=== PATIENT | female | born 1945 | race Caucasian/White ===

== ENCOUNTER 2023-11-09 11:34 | Outpatient (AMB) | payer OTHER, SELFPAY ==
[2023-11-09 12:04] VITALS: BP 122/58; PULSE 84; O2SAT 99
--- NOTE | 2023-11-09 12:04 | HO.NEPHOV ---
HPI HPI Comments History of Present Illness Details I would the privilege of seeing Lisa on a backdrop of hypertension and history of microalbuminuria. She is longstanding diabetic. Her blood sugar control has been suboptimal. She is on losartan 100 mg daily which she is tolerating well. Her blood pressure has been at goal. She has history of atrial fibrillation and has been taking diltiazem. She has edema from her calcium channel fide and takes diuretics. She is on anticoagulation. She has history of diastolic heart failure. She has longstanding back issues and has seen pain management. She currently has been having left hip issues but denies taking nonsteroidal anti-inflammatories on a regular basis. She has history of incontinence and takes mirabegron. She is concerned about taking diuretics while having issues of incontinence. She follows up with the [facility]. She denies chest pain, shortness of breath, paroxysmal nocturnal dyspnea, orthopnea, hematuria or orthostatic symptoms. Her renal functions are stable. [facility] Medical History (Updated 11/09/23 @ 20:52 by Kirk Lai MD) Urine incontinence Renal insufficiency Radiculopathy Plantar fasciitis Osteomyelitis of thoracic spine Osteoarthritis CRISTOFER (obstructive sleep apnea) Meniere disorder Lumbar degenerative disc disease Hypertension Edema Diastolic CHF, chronic Diabetic neuropathy Type 2 diabetes mellitus with microalbuminuria Diabetes mellitus Chronic anticoagulation Atrial fibrillation CKD (chronic kidney disease) stage 3, GFR 30-59 ml/min Surgical History History of cataract surgery History of cholecystectomy History of thyroidectomy History of spinal fusion H/O arthroscopy of right knee H/O laminectomy History of bladder suspension procedure History of carpal tunnel release H/O bilateral salpingo-oophorectomy S/P laparoscopic hysterectomy History of prolapse of bladder Vital Signs 11/09/23 12:04 Height 5 ft 6 in BP 122/58 L Blood Pressure Location Lt brachial Position Sitting Pulse 84 Pulse Source Pulse Oximeter Pulse Oximetry (%) 99 Oxygen Delivery Method Room Air Physical Exam Vital Signs: Last Vital Signs Pulse 84 11/09/23 12:04 BP 122/58 L 11/09/23 12:04 Pulse Ox 99 11/09/23 12:04 Oxygen Delivery Method Room Air 11/09/23 12:04 Const General: comfortable and no acute distress Orientation/consciousness: patient oriented x3 HEENT Head: Yes normocephalic Mouth: Normal oral and palatal mucosa present Eyes EOM: EOMs intact bilaterally Neck Neck: Yes supple Resp Auscultation: clear to auscultation bilaterally Cardio Jugular venous distension: no JVD Rate: regular rate GI Palpation (GI): Soft to palpation Auscultation: normal bowel sounds Skin General skin exam: no rashes or lesions noted Neuro General: patient oriented x3 and moves all extremities Assessment & Plan Assessment & Plan (1) Hypertension: Code(s): I10 - Essential (primary) hypertension Qualifiers: Hypertension type: primary hypertension Qualified Code(s): I10 - Essential (primary) hypertension (2) Diabetes mellitus with proteinuria: Code(s): E11.29 - Type 2 diabetes mellitus with other diabetic kidney complication; R80.9 - Proteinuria, unspecified Plan Lisa has longstanding diabetes mellitus with hypertension and history of microalbuminuria. She is tolerating ARB and her blood pressure has been at goal. Her blood sugar control is not optimal despite being on insulin. She will benefit from Jardiance or Farxiga. She needs to lose weight. She should cut back sodium in the diet. She was wondering whether she can switch from diltiazem as it is contributing to her edema. 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 Her renal functions are stable. She is on statins. I did not make any medication changes today. All these issues have been discussed in detail. I answered all her and her 's questions. Follow-up lab work ordered and follow-up appointment given. Orders: Orders Electrolytes Today I10 - Essential (primary) hypertension Protein Creatinine Ratio, Ur Today I10 - Essential (primary) hypertension Creatinine Today I10 - Essential (primary) hypertension Blood Urea Nitrogen Today I10 - Essential (primary) hypertension Hemoglobin A1c Today I10 - Essential (primary) hypertension Coding Level of Care Code New Pt Level 4 (35331) Diagnoses Primary hypertension I10 Hypertension type: primary hypertension Diabetes mellitus with proteinuria E11.29; R80.9 Results Reviewed Nephrology Results: No Data to Display
== END 2023-11-09 13:06 | disposition home or self-care (01) ==
PROVIDERS: PCP Internal Medicine; Visit Provider Internal Medicine Nephrology
DX: I10 Essential (primary) hypertension (principal); E11.29 Type 2 diabetes mellitus with other diabetic kidney complication; R80.9 Proteinuria, unspecified
CPT/HCPCS: 99204

== ENCOUNTER → 2023-11-09 11:34 | Outpatient (BNVA) | payer OTHER, SELFPAY | PROVIDERS: PCP Internal Medicine; Visit Provider Internal Medicine Nephrology ==

== ENCOUNTER 2024-06-22 11:50 | Outpatient (AMB) | payer OTHER, SELFPAY ==
--- NOTE | 2024-06-22 12:19 | HO.NEPHOV_ITS ---
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 Her blood sugar control has been suboptimal. She is on losartan 100 mg daily which she is tolerating well. Her blood pressure has been at goal. She has history of atrial fibrillation and has been taking diltiazem. She has edema from her calcium channel fide and takes diuretics. She is on anticoagulation. She has history of diastolic heart failure. She has longstanding back issues and has seen pain management. She has history of incontinence and takes mirabegron. She follows up with the [facility]. She denies chest pain, shortness of breath, paroxysmal nocturnal dyspnea, orthopnea, hematuria or orthostatic symptoms. Her renal functions are stable [facility] Medical History (Updated 06/26/24 @ 22:07 by Kirk Lai MD) Urine incontinence Renal insufficiency Radiculopathy Plantar fasciitis Osteomyelitis of thoracic spine Osteoarthritis CRISTOFER (obstructive sleep apnea) Meniere disorder Lumbar degenerative disc disease Hypertension Edema Diastolic CHF, chronic Diabetic neuropathy Type 2 diabetes mellitus with microalbuminuria Diabetes mellitus Chronic anticoagulation Atrial fibrillation CKD (chronic kidney disease) stage 3, GFR 30-59 ml/min Surgical History History of cataract surgery History of cholecystectomy History of thyroidectomy History of spinal fusion H/O arthroscopy of right knee H/O laminectomy History of bladder suspension procedure History of carpal tunnel release H/O bilateral salpingo-oophorectomy S/P laparoscopic hysterectomy History of prolapse of bladder Review of Systems Const All systems reviewed & are unremarkable except as noted in HPI and below Physical Exam Vital Signs: Last Vital Signs BP 122/54 L 06/22/24 12:20 Const General: comfortable and no acute distress Orientation/consciousness: patient oriented x3 HEENT Head: Yes normocephalic Mouth: Normal oral and palatal mucosa present Eyes EOM: EOMs intact bilaterally Neck Neck: Yes supple Resp Auscultation: clear to auscultation bilaterally Cardio Jugular venous distension: no JVD Rate: regular rate GI Palpation (GI): Soft to palpation Auscultation: normal bowel sounds General: Yes no CVA tenderness Back/Spine/Pelvis Back: no CVA tenderness Skin General skin exam: no rashes or lesions noted Neuro General: patient oriented x3 and moves all extremities Extrem General: Yes no pedal edema Results Reviewed Nephrology Results: No Data to Display Assessment & Plan Assessment & Plan (1) CKD (chronic kidney disease) stage 3, GFR 30-59 ml/min: Code(s): N18.30 - Chronic kidney disease, stage 3 unspecified Category: Medical Qualifiers: Chronic kidney disease stage 3 subtype: stage 3a (GFR 45-59) Qualified Code(s): N18.31 - Chronic kidney disease, stage 3a (2) Hypertension: Code(s): I10 - Essential (primary) hypertension Category: Medical Qualifiers: Hypertension type: primary hypertension Qualified Code(s): I10 - Essential (primary) hypertension (3) Diabetes mellitus with proteinuria: Code(s): E11.29 - Type 2 diabetes mellitus with other diabetic kidney complication; R80.9 - Proteinuria, unspecified Category: Medical Plan Lisa has longstanding diabetes mellitus with hypertension and history of proteinuria. She is tolerating ARB and her blood pressure has been at goal. Her blood sugar control is not optimal despite being on insulin. She will benefit from Jardiance or Farxiga. She needs to lose weight. She should cut back sodium in the diet. Her renal functions had been stable. She is on st atins. I did not make any medication changes today. All these issues have been discussed in detail. I answered all her and her 's questions. Follow-up lab work ordered Orders: Orders Protein Creatinine Ratio, Ur 06/22/24 E11.29 - Type 2 diabetes mellitus with other diabetic kidney complication, I10 - Essential (primary) hypertension, N18.30 - Chronic kidney disease, stage 3 unspecified, R80.9 - Proteinuria, unspecified Creatinine 06/22/24 E11.29 - Type 2 diabetes mellitus with other diabetic kidney complication, I10 - Essential (primary) hypertension, N18.30 - Chronic kidney disease, stage 3 unspecified, R80.9 - Proteinuria, unspecified Blood Urea Nitrogen 06/22/24 E11.29 - Type 2 diabetes mellitus with other diabetic kidney complication, I10 - Essential (primary) hypertension, N18.30 - Chronic kidney disease, stage 3 unspecified, R80.9 - Proteinuria, unspecified Electrolytes 06/22/24 E11.29 - Type 2 diabetes mellitus with other diabetic kidney complication, I10 - Essential (primary) hypertension, N18.30 - Chronic kidney disease, stage 3 unspecified, R80.9 - Proteinuria, unspecified Coding Level of Care Code Est Pt Level 4 (58916) Diagnoses Stage 3a chronic kidney disease N18.31 Chronic kidney disease stage 3 subtype: stage 3a (GFR 45-59) Primary hypertension I10 Hypertension type: primary hypertension Diabetes mellitus with proteinuria E11.29; R80.9
[2024-06-22 12:20] VITALS: BP 122/54
== END 2024-06-22 12:59 | disposition home or self-care (01) ==
LOC: HO.HKAS 11:50
PROVIDERS: PCP Internal Medicine; Visit Provider Internal Medicine Nephrology
DX: N18.31 Chronic kidney disease, stage 3a (principal); I10 Essential (primary) hypertension; E11.29 Type 2 diabetes mellitus with other diabetic kidney complication; R80.9 Proteinuria, unspecified
CPT/HCPCS: 99214

== ENCOUNTER → 2024-06-22 11:50 | Outpatient (BNVA) | payer OTHER, SELFPAY | PROVIDERS: PCP Internal Medicine; Visit Provider Internal Medicine Nephrology ==

== ENCOUNTER 2024-12-21 13:02 | Outpatient (AMB) | payer OTHER, SELFPAY ==
--- NOTE | 2024-12-21 13:23 | HO.NEPHOV ---
Vital Signs 12/21/24 13:54 Height 5 ft 6 in Weight 211 lb 4 oz BMI 34.1 BP 120/60 Blood Pressure Location Rt brachial Position Sitting Pulse 70 Pulse Source Pulse Oximeter Pulse Oximetry (%) 99 Oxygen Delivery Method Room Air Intake Visit Reasons: 6mon follow up-[facility] Senior Net Architect Required: No Accompanied by: Spouse Allergies morphine Allergy (Verified 12/21/24 13:54) Unknown Penicillins Allergy (Verified 12/21/24 13:54) Rash vancomycin Allergy (Verified 12/21/24 13:54) Rash codeine Adverse Reaction (Verified 12/21/24 13:54) Abdominal Pain HPI Comments Details: Lisa was seen in follow up who has H/O DM, CKD 3, hypertension with history of proteinuria. Her blood sugar control has been suboptimal. She is on losartan 100 mg daily which she is tolerating well. Her blood pressure has been at goal. She has history of atrial fibrillation and has been taking diltiazem. She has edema from her calcium channel fide and takes diuretics. She is on anticoagulation. She has history of diastolic heart failure. She has longstanding back issues and has seen pain management. She follows up with the [facility]. She denies chest pain, shortness of breath, paroxysmal nocturnal dyspnea, orthopnea, hematuria or orthostatic symptoms. Her renal functions had been stable [facility] Medical History (Updated 06/26/24 @ 22:07 by Kirk Lai MD) Urine incontinence Renal insufficiency Radiculopathy Plantar fasciitis Osteomyelitis of thoracic spine Osteoarthritis CRISTOFER (obstructive sleep apnea) Meniere disorder Lumbar degenerative disc disease Hypertension Edema Diastolic CHF, chronic Diabetic neuropathy Type 2 diabetes mellitus with microalbuminuria Diabetes mellitus Chronic anticoagulation Atrial fibrillation CKD (chronic kidney disease) stage 3, GFR 30-59 ml/min Surgical History History of cataract surgery History of cholecystectomy History of thyroidectomy History of spinal fusion H/O arthroscopy of right knee H/O laminectomy History of bladder suspension procedure History of carpal tunnel release H/O bilateral salpingo-oophorectomy S/P laparoscopic hysterectomy History of prolapse of bladder Review of Systems Const All systems reviewed & are unremarkable except as noted in HPI and below Physical Exam Vital Signs: Last Vital Signs Pulse 70 12/21/24 13:54 BP 120/60 12/21/24 13:54 Pulse Ox 99 12/21/24 13:54 Oxygen Delivery Method Room Air 12/21/24 13:54 BMI result Body Mass Index 34.1 Const General: comfortable and no acute distress Orientation/consciousness: patient oriented x3 HEENT Head: Yes normocephalic Mouth: Normal oral and palatal mucosa present Eyes EOM: EOMs intact bilaterally Neck Neck: Yes supple Resp Auscultation: clear to auscultation bilaterally Cardio Jugular venous distension: no JVD Rate: regular rate GI Palpation (GI): Soft to palpation Auscultation: normal bowel sounds General: Yes no CVA tenderness Back/Spine/Pelvis Back: no CVA tenderness Skin General skin exam: no rashes or lesions noted Neuro General: patient oriented x3 and moves all extremities Extrem General: Yes no pedal edema Results Reviewed Nephrology Results: No Data to Display Assessment & Plan Assessment & Plan (1) Diabetes mellitus with proteinuria: Code(s): E11.29 - Type 2 diabetes mellitus with other diabetic kidney complication; R80.9 - Proteinuria, unspecified Category: Medical (2) CKD (chronic kidney disease) stage 3, GFR 30-59 ml/min: Code(s): N18.30 - Chronic kidney disease, stage 3 unspecified Category: Medical Qualifiers: Chronic kidney disease stage 3 subtype: stage 3a (GFR 45-59) Qualified Code(s): N18.31 - Chronic kidney disease, stage 3a (3) Hypertension: Code(s): I10 - Essential (primary) hypertension Category: Medical Qualifiers: Hypertension type: primary hypertension Qualified Code(s): I10 - Essential (primary) hypertension Plan Lisa has longstanding diabetes mellitus with hypertension and history of proteinuria. She is tolerating ARB and her blood pressure has been at goal. Her blood sugar control is not optimal despite being on insulin. She will benefit from Jardiance. She needs to lose weight. She should cut back sodium in the diet. Her renal functions had been stable. She is on statins. I did not make any medication changes today. All these issues have been discussed in detail. I answered all her and her 's questions. Follow-up lab work ordered Orders: Orders Protein Creatinine Ratio, Ur 8 Months E11.29 - Type 2 diabetes mellitus with other diabetic kidney complication, I10 - Essential (primary) hypertension, N18.31 - Chronic kidney disease, stage 3a, R80.9 - Proteinuria, unspecified Creatinine 8 Months E11.29 - Type 2 diabetes mellitus with other diabetic kidney complication, I10 - Essential (primary) hypertension, N18.31 - Chronic kidney disease, stage 3a, R80.9 - Proteinuria, unspecified Blood Urea Nitrogen 8 Months E11.29 - Type 2 diabetes mellitus with other diabetic kidney complication, I10 - Essential (primary) hypertension, N18.31 - Chronic kidney disease, stage 3a, R80.9 - Proteinuria, unspecified Electrolytes 8 Months E11.29 - Type 2 diabetes mellitus with other diabetic kidney complication, I10 - Essential (primary) hypertension, N18.31 - Chronic kidney disease, stage 3a, R80.9 - Proteinuria, unspecified Coding Level of Care Code Est Pt Level 4 (49379) Diagnoses Diabetes mellitus with proteinuria E11.29; R80.9 Stage 3a chronic kidney disease N18.31 Chronic kidney disease stage 3 subtype: stage 3a (GFR 45-59) Primary hypertension I10 Hypertension type: primary hypertension
[2024-12-21 13:54] VITALS: BP 120/60; PULSE 70; O2SAT 99; BMI 34.1
--- OUTSIDE RECORDS SUMMARY | 2024-12-21 15:29 | XMS_ITS | Data Portability ---
Author Organization [place] - [facility], [facility] Address [address] [place] [phone] Care Team Providers Care Promotion Writer Name Role Phone ARPAN TODD Primary Care Provider JENNIFER MARTINEZ OTHER Assessment Encounter Date Assessment Date Assessment LastModified by Organization Details LastModified Time 03/19/2021 03/19/2021 Time On Scene with Patient: 00:35:21 - Referred - Point of Care: Emergency Department [id number] Not available 03/19/2021 18:11:18 06/24/2022 06/24/2022 Overview/History : Patient is a 76 year old female with a PMH including A FIB (on xarelto), CHF, insulin dependent T2DM, 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 Pain exacerbated with ambulation/movem ent. No injuries. Has been taking tylenol for the pain all she can take for pain , some effect. Also using a heating pad. Denies any fevers/loss of sensation/weakne ss. Exam: Patient is awake and alert, answering questions appropriately. In no distress. Sitting in recliner with heating pad in place. LS CTA, RRR. Vitals stable. Able to stand for evaluation. Skin is warm dry and intact. No bony abnormality noted to L hip/no obvious shortening. Tenderness noted to palpation of soft tissue. No step offs/deformities present. + CMS to bilat LE. She was able to stand independently without assist. Vital Signs: 98.1, RR 18, 122/50, 100% RA HR 72. DDx considered, but not limited to: -- L hip pain; unknown cause of injury likely due to overuse. -- Hip fracture, unlikely based on physical exam. Patient able to stand/ no obvious shortening or deformity noted. Will order an XRAY to rule out any bony abnormality. Work up/Results: Physical exam Plan/Discussion: L hip pain; continue to use the heating pad 20 minutes on 20 minutes off as well as ice. Recommended she uses Lidocaine patches as well for the localized pain. Unable to administer any narcotics agents as [employer] is a narcotic free [employer]. Patient also can only take tylenol for pain .. she has a long history with pain management in past requiring previous epidurals. Encouraged she follows up with pain services as well as PCP. Patient and family present in agreement with plan. Phone number provided to [employer], instructed to call if she has not heard from them by tomorrow afternoon. Aware we will be in contact with any abnormal findings. ED precautions provided; seek medical attention with worsening pain/change or loss in sensation/fevers / increased weakness. Proper Personal Protective Equipment (PPE), including gloves, eye protection and masks were donned and doffed appropriately and all equipment cleaned using approved technique with germicidal disposable wipes prior to and after care of this patient according to [facility] infection prevention protocols. [email or web address] Not available 06/24/2022 20:10:37 Plan of Treatment Reminders Order Date Submit Date Provider Last Modified By Organization Details Last Modified Time Details Appointments None recorded. Lab None recorded. Referral None recorded. Procedures None recorded. Surgeries None recorded. Imaging unlisted imaging order - hip uni W or w/o pelvis 2-3 V-lt 2021 [facility]22 [facility] [address] [place] [address], [place], [address], 14:12:26 Medication Orders None recorded. Patient TargetsNo targets recorded. Patient InstructionsNo instructions recorded. Reason for Referral None Reported. Results Created Date Observation Date Name Description Value Unit Range Abnormal Flag Note LastModifiedBy Organization Detail LastModifiedTime 06/25/20 22 06/25/2022 hip uni W or w/o pelvi s 2-3 V HIP UNI W OR W/O PELVIS 2-3 V, LEFT FINDIN GS: No acute fractu re or disloc ation. The osseou s struct ures appear intact . Joint spaces are narrow ed. Soft tissue s are unrema rkable . CONCLU SB: No acute osseou s abnorm ality. Recomm end repeat or CT in 1 week or sooner if sympto ms have not resolv ed, contin ued or new ambula tory diffic ulty or contin ued clinic al concer n. ELECTR ONICAL LY SIGNED BY LIZZY MCNEAL M.D. 2:04:1 7 PM EDT. HIP UNI W OR W/O PELVIS 2-3 V, LEFT Result s: No acute fractu re or disloc ation. The osseou s struct ures appear intact . Joint spaces are narrow ed. Soft tissue s are unrema rkable . Conclu sb: No acute osseou s abnorm ality. Recomm end repeat or CT in 1 week or sooner if sympto ms have not resolv ed, contin ued or new ambula tory diffic ulty or contin ued clinic al concer n. Electr onical ly signed by LIZZY MCNEAL M.D. 2:04:1 7 PM EDT. [facility] [address] [facility] [address] [address], [address], 06/25/2022 17:00:39 Result Notes None recorded. Procedures Surgical History Date Name Laterality Status Provider Name and Address Organization Details Recorded Time 06/24/20 22 Medication Review completed Krista Navarro NP [address], [place], [address], [place] [facility] 06/24/2022 19:56:31 Imaging Results Imaging Date Name Status LastModified by Organiz ation Details LastModified Time 06/25/2022 hip uni W or w/o pelvis 2-3 V completed [facility] [address] [facility] [address] [address], [place], [address], 06/25/2022 17:00:39 Procedure Notes None recorded. Medical Equipment None Reported. Allergies Allergen ID Allergen Name Allergen Category Reaction Reaction Severity Criticality Documentation Date Start Date Code Code System Note Provider Name and Address Organization Details Recorded Time [id number] codeine medicatio n Not available Not available Not available 03/19/2021 2670 [facility]Norm Georgie Martin NP [address], [facility] [place], [address], [place] [facility] 1 17:26:21 [id number] morphine medicatio n Not available Not available Not available 03/19/2021 7052 RxNorm Georgieadriana Martin, [employer] [address], [facility] [place], [address], [place] [facility] 1 17:26:29 217143 vancomyci n medicatio n Not available Not available Not available 03/19/2021 81855 RxNorm Georgie Martin, [employer] [address], [facility] [place], [address], [place] [facility] 1 17:26:37 [id number] Product containin g penicilli n (product) medicatio n Not available Not available Not available 03/19/2021 30487 8001 SNOMED Georgie Martin, [employer] [address], [facility] [place], [address], [place] [facility] 1 17:26:44 Medications Name Sig Start Date Stop Date Status Note LastModified by Organization Details LastModified Time pravastatin 40 mg tablet TAKE 1 TABLET BY MOUTH DAILY AT BEDTIME active Not Available Not Available No t Available miconazole nitrate 2 % topical cream APPLY TOPICALLY TO THE AFFECTED AREA TWICE DAILY FOR 14 DAYS 06/24 completed Not Available Not Available Not Available diltiazem CD 240 mg capsule,ext ended release 24 hr TAKE 1 CAPSULE BY MOUTH DAILY active Not Available Not Available No t Available gabapentin 300 mg capsule TAKE 1 CAPSULE BY MOUTH AT BEDTIME active Not Available Not Available No t Available omeprazole 20 mg capsule,del ayed release TAKE 1 CAPSULE BY MOUTH DAILY active Not Available Not Available No t Available furosemide 20 mg tablet TAKE 1 TABLET BY MOUTH DAILY active Not Available Not Available No t Available norethindro ne acetate 5 mg tablet TAKE 1 TABLET BY MOUTH EVERY DAY active Not Available Not Available No t Available losartan 100 mg tablet TAKE 1 TABLET BY MOUTH DAILY active Not Available Not Available No t Available doxycycline hyclate 100 mg tablet TAKE 1 TABLET BY MOUTH TWICE DAILY FOR 10 DAYS 06/24 completed Not Available Not Available Not Available Novofine Autocover 30 gauge x 1/3 needle USE THREE TIMES DAILY active Not Available Not Available No t Available Zyrtec active Not Available Not Availa ble Not Available Lantus Solostar U-100 Insulin 100 unit/mL (3 mL) subcutaneou s pen ADMINISTE R 48 UNITS UNDER THE SKIN AT NIGHT active Not Available Not Available No t Available Humalog KwikPen (U-100) Insulin 100 unit/mL subcutaneou s INJECT 14-23 UNITS THREE TIMES DAILY WITH MEALS BASED ON SLIDING SCALE. MAX DAILY DOSE OF 90 UNITS active Not Available Not Available No t Available Xarelto 15 mg tablet TK 1 T PO QD 03/19 completed Not Available Not Available Not Available Xarelto 20 mg tablet TAKE 1 TABLET BY MOUTH DAILY active Not Available Not Available No t Available FreeStyle Toribio 14 Day Sensor kit active Not Available Not Available Not Available Vitals Date Recorded Oxygen saturation Oxygen saturation in Arterial blood by Pulse oximetry Body temperature Heart rate Respiratory rate Systolic blood pressure Diastolic blood pressure Provider Name and Address Organization Details Last Updated DateTime 1 98 % 98 % 99 [degF] 148 /min 22 /min 140 mm[Hg] 70 mm[Hg] Not Available [facility] 1 17:46:43 Date Recorded Body temperature Heart rate Respiratory rate Oxygen saturation Oxygen saturation in Arterial blood by Pulse oximetry Systolic blood pressure Diastolic blood pressure Provider Name and Address Organization Details Last Updated DateTime 2 98.1 [degF] 72 /min 18 /min 100 % 100 % 122 mm[Hg] 50 mm[Hg] Krista Navarro NP [address] [place], [address], [place] [facility] 2 19:21:29 Social History Question Answer Notes LastModified by Organizat ion Details LastModified Time Tobacco Smoking Status Never Smoker Georgie Martin NP [address], [place], [address], [place] [facility] 03/19/2021 17:39:55 Do You Have An Advance Directive? No Information not available 03/19/2021 What Is Your Level Of Alcohol Consumption? None Information not available 03/19/2021 What Is Your Code Status? Full Code Information not available 03/19/2021 Within The Past 12 Months, Has It Happened That The Food You Bought Just Didn't Last And You Didn't Have Money To Get More. No Information not available 03/19/2021 Within The Past 12 Months, Have You Worried That Your Food Would Run Out Before You Got Money To Buy More. No Information not available 03/19/2021 Fall Risk: Do You Feel Unsteady When Standing Or Walking? No Information not available 03/19/2021 We Know That How And When People Interact With Friends And Family Can Be Very Different From Person To Person. How Often Do You Have The Opportunity To See Or Talk To People That You Care About And Feel Close To? (Ex: Talking To Friends On The Phone Or Visiting Friends Or Family Or Going To [employer] Or Club Meetings) 1 Or 2 Times Per Week Information not available 03/19/2021 Excessive Alcohol Or Drug Use No Information not available 03/19/2021 Does This Patient Have A PCP? Yes Information not available 03/19/2021 We Know From Many Of Our Patients That Covering All Of Their Costs Can Be Difficult At Times. This Can Cause Stress And Impact Health. In The Past Year, Have You Been Unable To Get Any Of The Following When It Was Really Needed? No Information not available 03/19/2021 What Is Your Housing Situation Today? I Have Housing Information not available 03/19/2021 Would You Like Help Connecting To Resources? None Information not available 03/19/2021 Do You Use Any Illicit Or Recreational Drugs? No Information not available 03/19/2021 Do You Or Have You Ever Used Any Other Forms Of Tobacco Or Nicotine? No Information not available 03/19/2021 Sex: Unknown Functional Status None recorded. Mental Status None recorded. Family History Relationship Description Onset Age of this Age Resolved Age Notes LastModified by Organization Details LastModified Time Father Heart disease Not available 2020 17:40:59 Father Diabetes mellitus Not available 2020 17:41:07 Mother Malignant tumor of breast Not available 2020 17:41:35 Medical History Condition Response Diabetes Y Coronary Artery Disease Y Cancer N Stroke N COPD N Depression Y Asthma N High Cholesterol Y Pulmonary Embolism N Hypertension Y Kidney Disease Y Gynecological HistoryNo gynecological history recorded. Obstetrics History GPAL:G 0 P 0 0 0 0 Past Encounters Encounter ID Performer Location Encounter Start Date Encounter Closed Date Diagnosis/Indication Diagnosis SNOMED-CT Code Diagnosis ICD10 Code Diagnosis Note [id number] Georgie Martin NP [facility] [address] [place] [address] 03/19/2021 17:22:54 03/19/2021 18:25:34 Dyspnea on exertion 70235974 R06.09 Overview/H istory: Patient is an alert 75 year old female who presents with chief complaint of flu symptoms x 12 days. She did visit the ED several days ago, but declined assessment due to long wait times. Patient did go to an urgent care center 5 days ago and a rapid strep resulted negative. She did have her Covid vaccinatio ns and completed the series this past November 2020. Patient PCP requests assessment for pneumonia and also Covid testing this visit. Exam: Febrile 99.0. HR tachycardi c, irregularl y irregular 148. No rub, murmur appreciate d. Dry mucous membranes, + submandibu lar lymphadeno hayley noted. Tenderness when palpating over frontal sinuses, erythema to oropharynx , airway is patent. LS diminished throughout , clear with exception of left lower lung field which is + crackles. RR 22 at rest, speaking in full sentences. Walking short distance to bedroom, patient SOB, speaking in short sentences , WOB NOTED. Abdomen SNT, + BS x 4 quadrants. No CVA tenderness , no suprapubic tenderness . DDx considered , but not limited to:Pneumon ia likely, febrile, + cracklesPE considered , no sudden onsetURI considered , febrile, productive coughAFIB + Work up/Results :Exam Plan/Discu ssion: Patient tachycardi c 148, dyspnea with exertion, crackles left lower lung dejesus, patient visit escalated to [facility] ED. Doug young contacted for transport. Report provided to [facility] single needle tufting machine operator. Proper Personal Protective Equipment (PPE), including {{gloves, eye protection , masks, and gowns, shoe covers rnadi ves, eye protection and masks* randi ves, eye protection gloves, eye protection , N95 mask, gown, and shoe covers abigail gical mask with face-shiel d, gloves, gown and shoe covers abigail gical mask with face-shiel d, gloves}} were donned and doffed rosalinda balderas and all equipment cleaned using approved technique with germicidal disposable wipes prior to and after care of this patient according to [facility]'s infection prevention protocols. In order to obtain further informatio n and compare any laboratory results/va lues, I have accessed {{old patient records* p atient records on the [facility] r eviewed records with the PCP}}. This informatio n was pertinent in my medical decision making today. Fever [id number] R50.9 Atrial fibrillation 4943 6004 I48.91 Tachycardia 6697654 R00. 0 Respiratory crackles 484 86614 R09.89 [id number] Krista Navarro NP [facility] [address] [place] [address] 06/24/2022 19:14:50 07/02/2022 07:32:59 Pain of left hip joint [id number] 61610 M25.552 Health Concerns Section Related Observation LastModified by Organization Detai ls LastModified Time None Recorded Concern Status LastModified by Organization Details LastModified Time None Recorded Advance Directives Directive N: Payers Encounter Date Sequence Insurance Name Policy Number Policy Diaz Covered Member ID Diaz Member ID Guarantor Name 03/19/2021 1 [employer] - MEDICARE ADVANTAGE PLAN (MEDICARE REPLACEMENT HMO) [id number] 01 Lisa Ruest [id number] Lisa Ruest 06/24/2022 2 [facility] - PLAN 1 (MEDICARE SUPPLEMENT) [id number] 01 Lisa Ruest [id number] Lisa Ruest 06/24/2022 1 [employer] - MEDICARE ADVANTAGE PLAN (MEDICARE REPLACEMENT HMO) Lisa Ruest [id number] Lisa Ruest Notes Date Note Type Note Provider Name and Address Organization Details Recorded Time 03/19/2021 text/html Patient is a 75 year old female who is new to and new to this provider. Patient chief complaint is flu symptoms x 12 days for which she went to the ED this past Wednesday where there was a 20 hour wait; patient declined wait and went to an urgent care where a throat strep swab resulted negative. Symptoms include persistent dry cough, some congestion,' chest wall discomfort from cough, intermittent diarrhea which patient feels is from OTC remedies. Alleviating factors include sugar free cough syrup, cough drops and saline nasal spray. Patient medical history significant for AFIB, hyperlipidemia, renal insufficiency, diabetes. Patient PCP requesting Covid testing although she did complete Covid vaccines x 2 this past November. Patient did have pneumonia vaccine and flu vaccine. 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 Pain exacerbated with ambulation/movemen t. No injuries. Has been taking tylenol for the pain all she can take for pain , some effect. Also using a heating pad. Denies any fevers/loss of sensation/weakness . Krista Navarro NP [address], [place], [address], [place] [facility] 06/24/2022 20:10:50 OBGyn Episode No OBEpisode recorded.
--- OUTSIDE RECORDS SUMMARY | 2024-12-21 15:29 | XMS_ITS | Continuity of Care Document ---
Author Organization [facility] Adult Address [address] [place] [address]- Care Team Providers Care Home Sales Service Professional Name Role Phone Carina ALCANTAAR, Zeus Peralta Primary Care Physici an [place] [facility] [place]24 [facility] [address] [place] [address]- Encounter Type: Triage Allergies, Adverse Reactions, Alerts Substance Criticality Severity Reaction Reaction Severity Status codeine severe stomach pain Active vancomycin Rash Active morphine passed out Active penicillins Rash Active Immunizations Given and Recorded Vaccine Date Status Refusal Reason nirsevimab (cvx 306) 07/03/24 Recorded SARS-CoV-2 mRNA (fyezlts-[id number]) vax 06/12/24 Recorded Influenza Virus Vaccine (oldterm) 05/22/24 Recorde d influenza virus vaccine, inactivated 07/05/23 Give n influenza virus vaccine, inactivated 1 07/05/23 Gi amy influenza virus vaccine, inactivated 2 06/29/22 Gi amy influenza virus vaccine, inactivated 05/20/21 Trung rded influenza virus vaccine, inactivated 06/25/20 Give n influenza virus vaccine, inactivated 3 06/19/19 Gi amy influenza virus vaccine, inactivated 4 06/14/18 Gi amy influenza virus vaccine, inactivated 05/10/17 Give n influenza virus vaccine, inactivated 06/12/16 Give n influenza virus vaccine, inactivated 09/11/15 Trung rded influenza virus vaccine, inactivated 05/27/14 Trung rded influenza virus vaccine, inactivated 05/21/13 Trung rded influenza virus vaccine, inactivated 09/05/12 Trung rded SARS-CoV-2(COVID-19)mRNA-LNP vac(act115) 07/05/23 Recorded SARS-CoV-2 (COVID-19) mRNA BNT-162b2 vac 06/19/21 Recorded SARS-CoV-2 (COVID-19) mRNA BNT-162b2 vac 11/27/20 Given SARS-CoV-2 (COVID-19) mRNA BNT-162b2 vac 11/06/20 Given tetanus/diphtheria/pertussis, acel(Tdap) 02/21/16 Given tetanus/diphtheria/pertussis, acel(Tdap) 08/23/11 Given pneumococcal 13-valent vaccine 03/02/15 Recorded pneumococcal 13-valent vaccine 08/23/14 Given pneumococcal 23-valent vaccine 08/23/13 Given pneumococcal 23-valent vaccine 12/23/01 Recorded Zoster Vaccine Live 08/23/13 Given 1Result Comment: [facility] [id number]; screening done 2Result Comment: [facility] [id number] 3Result Comment: [facility] [id number] 4Result Comment: [06/14/2018] [facility] [phone] Medications 1 rollator walker with seat 1 rollator walker with seat, See Instructions, # 1 each, Refills 0, Tot. Refills 0, Maintenance, 1 rollator walker with seat dx: M54.10 M51.36 weight 99kg length of need: lifetime, 01/20/24 7:59:00 AMEDT, Supply Start Date: 01/20/24 Status: Ordered Quantity: 1.0 Unit: each Repeat number: 1 Colace sodium 100 mg oral capsule 100 mg, 1, capsule, By Mouth, 2 times a day, PRN, # 60 capsule, Refills 0, Tot. Refills 0, Maintenance, for constipation, 04/30/23 4:24:00 PM EDT, Route to Pharmacy Electronically, [id number], Partial fill upon patient request if the prescription is for a schedule II opioid drug., 168, cm, 04/30/23 11:07:00 EDT, Height, 97.9, kg, 04/30/23 11:07:00 EDT, Dry Weight Start Date: 04/30/23 Status: Ordered Quantity: 60.0 Unit: capsule Repeat number: 1 Colace sodium 100 mg oral capsule 100 mg, 1, capsule, By Mouth, 2 times a day, PRN, # 20 capsule, Refills 0, Tot. Refills 0, Maintenance, for constipation, 07/26/23 10:22:00 AM EST, Route to Pharmacy Electronically, [facility] #[id number], Partial fill upon patient request if the prescription is for a schedule II opioid drug., 168, cm, 07/26/23 8:22:00 EST, Height, 94.8, kg, 07/22/23 13:11:00 EST, Dry Weight Start Date: 07/26/23 Status: Ordered Quantity: 20.0 Unit: capsule Repeat number: 1 diabetic shoes diabetic shoes, See Instructions, # 2 each, Refills 0, Tot. Refills 0, Maintenance, Diabetic shoes,05/30/24 1:21:00 PM EDT, Supply Start Date: 05/30/24 Status: Ordered Quantity: 2.0 Unit: each Repeat number: 1 DilTIAZem (Eqv-Cardizem CD) 240 mg/24 hours oral capsule, extended release 1 capsule, By Mouth, Daily, # 90 capsule, 3 Refills, Maintenance, 12/01/24 2:37:00 PM EDT, [facility] #[id number], 167.7, cm, 11/02/24 14:10:00 EDT, Height, 99.3, kg, 01/29/24 4:26:00 EDT, Dry Weight Start Date: 12/01/24 Status: Ordered Quantity: 90.0 Unit: capsule Repeat number: 4 FREESTYLE TORIBIO 14 DAY SENS Miscellaneous FREESTYLE TORIBIO 14 DAY SENS Miscellaneous, See Instructions, # 6 Unknown, 3 Refills, Maintenance, USE TO SCAN FOR BLOOD SUGAR AT LEAST 4 TIMES DAILY., 05/05/24 8:45:00 AM EDT, 167.7, cm, 04/19/24 9:07:00 EDT, Height, 99.3, kg, 01/29/24 4:26:00 EDT, Dry Weight Start Date: 05/05/24 Status: Ordered Quantity: 6.0 Unit: Unknown Repeat number: 1 Freestyle Toribio 14-day Sensors Freestyle Toribio 14-day Sensors, See Instructions, # 6 each, Refills 4, Tot. Refills 4, Maintenance,Use to scan for blood sugar at least 4 times daily. E11.65 90 day supply, 03/25/23 8:47:00 AM EDT, Compound, 168, cm, 03/18/23 14:07:00 EDT, Height, 98, kg, 02/19/23 13:11:00 EDT, Dry Weight Start Date: 03/25/23 Status: Ordered Quantity: 6.0 Unit: each Repeat number: 5 Freestyle lite glucometer Freestyle lite glucometer, See Instructions, # 1 pack/packet, Refills 0, Tot. Refills 0, Maintenance, freestyle lite glucometer, 07/07/22 10:15:00 AM EST, Supply, 165.5, cm, 07/07/22 9:45:00 EST, Height, 103, kg, 10/31/20 0:05:00 EST, Dry Weight Start Date: 07/07/22 Status: Ordered Quantity: 1.0 Unit: pack/packet Repeat number: 1 freestyle lite lancets freestyle lite lancets, See Instructions, # 120 each, Refills 11, Tot. Refills 11, Maintenance, to use to check blood sugars up to 4 times a day with 30 days supply, 11/02/24 2:34:00 PM EDT, Supply, 167.7, cm, 11/02/24 14:10:00 EDT, Height, 99.3, kg, 01/29/24 4:26:00 EDT, Dry Weight Start Date: 11/02/24 Status: Ordered Quantity: 120.0 Unit: each Repeat number: 12 freestyle lite strips freestyle lite strips, See Instructions, # 200 each, Refills 11, Tot. Refills 11, Maintenance, freestyle lite strips to check blood sugars four times a day 30 days supply E11.9, 11/28/24 12:59:00 PM EDT, Supply, 167.7, cm, 11/02/24 14:10:00 EDT, Height, 99.3, kg, 01/29/24 4:26:00 EDT, Dry Weight Start Date: 11/28/24 Status: Ordered Quantity: 200.0 Unit: each Repeat number: 12 furosemide 20 mg oral tablet 20 mg, 1, tablet, By Mouth, Daily, # 30 tablet, Refills 0, Tot. Refills 0, Maintenance, 10/14/22 11:06:00 AM EST, Print Requisition, Partial fill upon patient request if the prescription is for a schedule II opioid drug. Start Date: 10/14/22 Status: Ordered Quantity: 30.0 Unit: tablet Repeat number: 1 gabapentin 300 mg oral capsule 1, capsule, By Mouth, 3 times a day, # 270 capsule, Refills 3, Tot. Refills 3, Maintenance, 08/17/24 12:21:00 PM EST, Route to Pharmacy Electronically, [facility], 167.7, cm, 07/07/24 14:40:00 EST, Height, 99.3, kg, 01/29/24 4:26:00 EDT, Dry Weight Start Date: 08/17/24 Status: Ordered Quantity: 270.0 Unit: capsule Repeat number: 4 Hinged Right Knee Brace Hinged Right Knee Brace, See Instructions, # 1 units, Refills 0, Tot. Refills 0, Maintenance, as needed for ambulation DX: Peripheral neuropathy G62.9 Osteoarthritis M17.11, 07/01/17 4:19:36 PM EST, Compound Start Date: 07/01/17 Status: Ordered Quantity: 1.0 Unit: Units Repeat number: 1 Humalog Kwik Pen 100 units/mL subcutaneous injection See Instructions, inject 14-23U SC 3 times daily with meals based on sliding scale . Max daily dose90 units, # 30 mL, 10 Refills, Maintenance, 11/30/22 10:54:00 AM EDT, Solution, [facility] ([facility] ), 165.5, cm, 07/07/22 9:45:00 EST, Height Start Date: 11/30/22 Status: Ordered Quantity: 30.0 Unit: mL Repeat number: 11 Iron 65 mg tablets Iron 65 mg tablets, Refills 0, Maintenance, 06/29/22 1:12:00 PM EST, Supply Start Date: 06/29/22 Status: Ordered Repeat number: 1 Lantus Solostar Pen 100 units/mL subcutaneous solution See Instructions, INJECT SUBCUTANEOUSLY 22 UNITS IN THE MORNING, 22 UNITS AT NIGHT TIME, # 45 mL, 0Refills, Maintenance, 12/07/24 6:45:00 PM EDT, [facility], 167.7, cm, 11/02/24 14:10:00 EDT, Height, 99.3, kg, 01/29/24 4:26:00 EDT, Dry Weight Start Date: 12/07/24 Status: Ordered Quantity: 45.0 Unit: mL Repeat number: 1 losartan 100 mg oral tablet 1 tablet, By Mouth, Daily, # 90 tablet, 3 Refills, Maintenance, 02/21/24 7:22:00 AM EDT, [facility], 167.7, cm, 01/29/24 4:26:00 EDT, Height, 99.3, kg, 01/29/24 4:26:00 EDT, Dry Weight Start Date: 02/21/24 Status: Ordered Quantity: 90.0 Unit: tablet Repeat number: 1 Multivitamin By Mouth, Daily, 0 Refills, 11/22/06 3:42:27 PM EDT Start Date: 11/22/06 Status: Ordered Repeat number: 1 Myrbetriq 25 mg oral tablet, extended release 1 tablet = 25 mg, By Mouth, Daily, do not crush or chew, # 90 tablet, 4 Refills, Maintenance, 10/04/23 2:56:00 PM EST, ER Tablet, [facility], Partial fill upon patient request if the prescription is for a schedule II opioid drug., 168, cm, 07/26/23 8:22:00 EST, Height, 99.33, kg, 08/27/23 11:57:00 EST, Dry Weight Start Date: 10/04/23 Status: Ordered Quantity: 90.0 Unit: tablet Repeat number: 5 novofine autocovers, 30G x8mm pen needle , novofine autocovers, 30G x8mm pen needle ,, See Instructions, # 100 each, Refills 11, Tot. Refills 11, Maintenance, 3 per day ,E11.9, 05/17/20 1:39:00 PM EDT, Compound, 165, cm, 10/03/19 13:56:00 EST,Height, 100.5, kg, 11/04/18 11:21:00 EDT, Dry Weight Start Date: 05/17/20 Status: Ordered Quantity: 100.0 Unit: each Repeat number: 12 Novofine autocvr 30x8 mm Pen needles Novofine autocvr 30x8 mm Pen needles, See Instructions, # 100 each, Refills 11, Tot. Refills 11, Maintenance, to use with insulin injections up to 4 times a day, 04/19/24 9:27:00 AM EDT, Supply, 167.7, cm, 04/19/24 9:07:00 EDT, Height, 99.3, kg, 01/29/24 4:26:00 EDT, Dry Weight Start Date: 04/19/24 Status: Ordered Quantity: 100.0 Unit: each Repeat number: 12 omeprazole 20 mg oral enteric coated capsule 1 capsule, By Mouth, Daily, # 90 capsule, 3 Refills, Maintenance, 09/08/24 9:34:00 AM EST, [facility], 167.7, cm, 07/07/24 14:40:00 EST, Height, 99.3, kg, 01/29/24 4:26:00 EDT, Dry Weight Start Date: 09/08/24 Status: Ordered Quantity: 90.0 Unit: capsule Repeat number: 4 pravastatin 40 mg oral tablet 1 tablet, By Mouth, Daily at bedtime, # 90 tablet, 1 Refills, Maintenance, 09/08/24 9:34:00 AM EST, [facility], 167.7, cm, 07/07/24 14:40:00 EST, Height, 99.3, kg, 01/29/24 4:26:00 EDT, Dry Weight Start Date: 09/08/24 Status: Ordered Quantity: 90.0 Unit: tablet Repeat number: 2 Xarelto 20 mg oral tablet 1 tablet = 20 mg, By Mouth, Daily before dinner, # 90 tablet, 3 Refills, Maintenance, 01/21/25 11:32:00 AM EDT, Tablet, [facility], Partial fill upon patient request if the prescription is fora schedule II opioid drug., 167.7, cm, 11/02/24 14:10:00 EDT, Height, 99.3, kg, 01/29/24 4:26:00 EDT, Dry Weight Start Date: 01/21/25 Status: Ordered Quantity: 90.0 Unit: tablet Repeat number: 4 Xarelto 20 mg oral tablet 1 tablet = 20 mg, By Mouth, Daily before dinner, # 90 tablet, 3 Refills, Hard Stop 01/21/25 11:32:00 AM EDT, 01/27/24 11:32:00 AM EDT, Tablet, [facility], Partial fill upon patient request if the prescription is for a schedule II opioid drug., 168, cm, 01/03/24 13:44:00 EDT, Height, 99.33, kg, 08/27/23 11:57:00 EST, Dry Weight Start Date: 01/27/24 Stop Date: 01/21/25 Status: Ordered Quantity: 90.0 Unit: tablet Repeat number: 4 ZyrTEC 10 mg oral tablet 1 tablet = 10 mg, By Mouth, Daily at bedtime, # 30 tablet, 0 Refills, Maintenance, 10/31/20 12:17:00AM EST, Tablet, Partial fill upon patient request if the prescription is for a schedule II opioid drug. Start Date: 10/31/20 Status: Ordered Quantity: 30.0 Unit: tablet Repeat number: 1 Problem List Condition Confirmation Course Effective Dates Status H ealth Status Informant Atrial fibrillation Confirmed Active Diastolic CHF, chronic 1 Confirmed Active Chronic kidney disease stage 3A (GFR 45-59) Confirmed Active Lumbar degenerative disc disease Confirmed Active Diabetes mellitus, type 2, with microalbuminuria Confirmed Active History of prolapse of bladder 2 Confirmed Active HTN (hypertension) Confirmed Active Chronic anticoagulation (Xarelto) Confirmed Active Radiculopathy Confirmed Active Diabetic neuropathy Confirmed Active Obese class I Confirmed Active CRISTOFER (obstructive sleep apnea) Confirmed Active Medicare annual wellness visit, subsequent Confirmed Active Insulin pump Confirmed Active Urine incontinence Confirmed Active 1Per cardiology notes. 2s/p sling Social History Social History Type Response Smoking Status Never (less than 100 in lifetime) entered on: 03/31/23 Sex Sex Representation Female (finding) Implantable Device List Procedure Provider Procedure Date Device Type Site Transvaginal Tape Cysto Tisha Swann DO 07/26/23 Unknown Pelvis and Genitalia Device Identifier Serial Number Lot or Batch Number Manufacturing Date Expiration Date Distinct Identification Code MRI Safety Implantable Status Assigning Authority Unknown Unknown [id number] Unknown 01/25/25 Unknown Unknown Active Unknown Patient Care team information Care Team Personnel Name: Carlita Crawford RN Position: [facility] RN Member Role: Primary Care Nurse Name: Zeus Hankins Position: [facility] PCO Associate Professional Member Role: PCP Address: [address] [place] [address]- [place] [employer]: Name: Jo Caban NP Position: [facility] Associate Professional Member Role: Primary Care Nurse Address: [address] [place] [address]- [place] [employer]: Name: Renato Alonso RN Position: [facility] RN Member Role: Primary Care Nurse Name: Leobardo Quintero RN Position: [facility] Laser Cutter Member Role: Primary Care Nurse Name: Rick Olivas RN Position: [facility] RN Member Role: Primary Care Nurse Name: Bigg Roberson RN Position: [facility] RN Member Role: Primary Care Nurse Name: Chrissie Mena RN Position: [facility] RN Member Role: Primary Care Nurse Name: Huyen Deal RN Position: [facility] RN Member Role: Primary Care Nurse Name: Ulises Tolliver Position: [facility] Outreach Member Role: Lifetime Consulting Physician Name: Susan Lester RN Position: [facility] OB RN Member Role: Primary Care Nurse Name: Holland Abraham Position: [facility] cabin service agent Member Role: [place] [place] Care Team Related Persons Name: BRADFORD COFFEY Name: RODY COFFEY Insurance Providers Guarantor name: HORACIO RUEST Health Plan Information #: 1 Payer: [facility] MEDICARE ADV HMO Member Number: NA Policy Number: NA Group Number: NA
--- OUTSIDE RECORDS SUMMARY | 2024-12-21 15:29 | XMS_ITS | Data Portability ---
Author Organization [facility] Address [address],[facility] [address] [place] [address] Assessment Encounter Date Assessment Date Assessment LastModified by Organization Details LastModified Time 07/10/2015 07/10/2015 Lisa Bartholomew is a 69 year old woman with complaints of low back pain radiating into right buttock region. She is here for review of MRI Lumbar spine. MRI Lumbar spine showsThere has been interval laminectomy at L3??-L4 and L4??-L5 with decompression of the canal. Degenerative disease has progressed since 2008 at almost all levels. This includes a new central extrusion at L1??2 resulting in moderate canal stenosis and compression of the L2 nerve roots. There is a new right paracentral/foramin al protrusion at L2??-L3 impinging on the descending right L3 nerve root and causing moderate to severe right neural foraminal stenosis. There is severe right neural foraminal stenosis at L3-??L4, worse than the prior study, with compression of the right L3 nerve root. There is severe left neural foraminal stenosis at L4- ??L5, worse than the prior study, with compression of the left L4 nerve root.I recommend a trial of lumbar epidural steroid injection under fluoroscopic guidance.?? The risks and benefits of the procedure?? were discussed in detail. She wishes to proceed. An appointment has been booked for the same. She needs a lifter/driver on the day of the procedure. She is on coumadin and needs to be off coumadin for 5 days for the procedure. Her PT/INR needs to be less than 1.1 on the day of the procedure. She needs Ativan 2mg prior to the procedure. [email or web address] Not available 07/10/2015 14:46:12 09/03/2015 09/03/2015 Lisa Bartholomew is a 69 year old woman with complaints of low back pain radiating into right buttock region.?? MRI Lumbar spine showsThere has been interval laminectomy at L3??-L4 and L4??-L5 with decompression of the canal. Degenerative disease has progressed since 2008 at almost all levels. This includes a new central extrusion at L1??2 resulting in moderate canal stenosis and compression of the L2 nerve roots. There is a new right paracentral/foramin al protrusion at L2??-L3 impinging on the descending right L3 nerve root and causing moderate to severe right neural foraminal stenosis. There is severe right neural foraminal stenosis at L3-??L4, worse than the prior study, with compression of the right L3 nerve root. There is severe left neural foraminal stenosis at L4- ??L5, worse than the prior study, with compression of the left L4 nerve root. She is here for?a trial of lumbar epidural steroid injection under fluoroscopic guidance.??The risks and benefits of the procedure?? were discussed in detail. She wishes to proceed. She can restart coumadin and follow instructions per her travel ot for dosing and INR testing. [email or web address] Not available 09/04/2015 10:35:33 10/04/2015 10/04/2015 Lisa Bartholomew is a 69 year old woman with complaints of low back pain radiating into right buttock region.?? MRI Lumbar spine showsThere has been interval laminectomy at L3??-L4 and L4??-L5 with decompression of the canal. Degenerative disease has progressed since 2008 at almost all levels. This includes a new central extrusion at L1??-2 resulting in moderate canal stenosis and compression of the L2 nerve roots. There is a new right paracentral/foramin al protrusion at L2??-L3 impinging on the descending right L3 nerve root and causing moderate to severe right neural foraminal stenosis. There is severe right neural foraminal stenosis at L3-??L4, worse than the prior study, with compression of the right L3 nerve root. There is severe left neural foraminal stenosis at L4- ??L5, worse than the prior study, with compression of the left L4 nerve root. She is here for a follow up after a trial of lumbar epidural steroid injection under fluoroscopic guidance. She reports some pain benefit. She states she still has continued pain in her right buttock region. We discussed treatment options 1. Repeat Lumbar epidural steroid injection under fluoroscopic guidance in November 2015.The risks and benefits of the procedure?? were discussed in detail. She wishes to proceed. An appointment has been booked for the same. She needs a lifter/driver on the day of the procedure. She is on coumadin and needs to be off coumadin for 5 days for the procedure. Her PT/INR needs to be less than 1.1 on the day of the procedure. She needs Ativan 2mg prior to the procedure. 2. Neurosurgical evaluation with Dr. Emery in regards to new MRI findings. 3. Continue with physical therapy . [email or web address] Not available 10/04/2015 10:49:01 11/26/2015 11/26/2015 Lisa Bartholomew is a 69 year old woman with complaints of low back pain radiating into right buttock region.?? MRI Lumbar spine showsThere has been interval laminectomy at L3??-L4 and L4??-L5 with decompression of the canal. Degenerative disease has progressed since 2008 at almost all levels. This includes a new central extrusion at L1??-2 resulting in moderate canal stenosis and compression of the L2 nerve roots. There is a new right paracentral/foramin al protrusion at L2??-L3 impinging on the descending right L3 nerve root and causing moderate to severe right neural foraminal stenosis. There is severe right neural foraminal stenosis at L3-??L4, worse than the prior study, with compression of the right L3 nerve root. There is severe left neural foraminal stenosis at L4- ??L5, worse than the prior study, with compression of the left L4 nerve root. She is here for a repeat lumbar epidural steroid injection under fluoroscopic guidance in November 2015.The risks and benefits of the procedure?? were discussed in detail. She wishes to proceed. She can restart coumadin tonight. She can follow up in 4-6 weeks. [email or web address] Not available 11/26/2015 14:23:13 12/19/2015 12/19/2015 Lisa Bartholomew is a 69 year old woman with complaints of low back pain radiating into right buttock region.?? MRI Lumbar spine showsThere has been interval laminectomy at L3??-L4 and L4??-L5 with decompression of the canal. Degenerative disease has progressed since 2008 at almost all levels. This includes a new central extrusion at L1??-2 resulting in moderate canal stenosis and compression of the L2 nerve roots. There is a new right paracentral/foramin al protrusion at L2??-L3 impinging on the descending right L3 nerve root and causing moderate to severe right neural foraminal stenosis. There is severe right neural foraminal stenosis at L3-??L4, worse than the prior study, with compression of the right L3 nerve root. There is severe left neural foraminal stenosis at L4- ??L5, worse than the prior study, with compression of the left L4 nerve root. She is here for a follow up after a trial of lumbar epidural steroid injection under fluoroscopic guidance. She reports some pain benefit. She states she still has continued pain in her right buttock region. We discussed treatment options 1. Trial of membrane stabilizers- I will start her on topomax 25 mg bid. She will start with one tablet at night for one week and then take one tablet bid . She will follow up in one month for a follow up. 2. Vascular consult for swelling in her right foot and ankle. 3. Continue a home exercise program 4. She will also benefit from an electric scooter . 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 She has submitted paper work to her insurance. [email or web address] Not available 12/20/2015 11:35:00 Plan of Treatment Reminders Order Date Submit Date Provider Last Modified By Organization Details Last Modified Time Details Appointments None recorded. Lab None recorded. Referral vascular surgeon referral - Thank you for seeing my patient Lisa Bartholomew who has swelling and pallor in her right foot and ankle. 2015 016 [email or web address] Jenn Beltrán MD, [address] [facility] [address], [place], [address], 6 11:12:36 neurosurger y referral - Thank you for seeing my patient Ms. Bartholomew. I have attached her MRI report and she will bring CD with her for visit. She had back surgery by you 5 years ago doing well until recently. 2015 Meeta Emery MD, [address], [facility] [address], [place], [address], 6 17:11:53 Procedures None recorded. Surgeries None recorded. Imaging None recorded. Medication Orders None recorded. Patient TargetsNo targets recorded. Patient Instructions Encounter Date Encounter Id Patient Instructions Last Modified By Organization Details Last Modified Time 07/10/2015 [id number] She was advised against bed rest lasting longer than four days and to continue activities as tolerated. [email or web address] Not available 07/10/2015 14:46:22 09/03/2015 [id number] She was advised against bed rest lasting longer than four days and to continue activities as tolerated. [email or web address] Not available 09/04/2015 10:33:01 10/04/2015 [id number] She was advised against bed rest lasting longer than four days and to continue activities as tolerated. [email or web address] Not available 10/04/2015 10:44:54 11/26/2015 [id number] She is a diabetic??. Blood sugar levels may temporarily increase after steroid injections. She was advised to check?? blood glucose levels three times a day post procedure. If?? levels are above 250, she was advised to contact??the PCP. [email or web address] Not available 11/26/2015 15:55:36 She was advised against bed rest lasting longer than four days and to continue activities as tolerated. [email or web address] Not available 11/26/2015 14:22:23 12/19/2015 [id number] She was advised against bed rest lasting longer than four days and to continue activities as tolerated. [email or web address] Not available 12/20/2015 10:26:49 Reason for Referral Neurosurgery Referral for Anaid mbosacral radiculitis Thank you for seeing my patient Ms. Bartholomew. I have attached her MRI report and she will bring CD with her for visit. She had back surgery by you 5 years ago doing well until recently. Referring Physician: [facility], Encounter Date: 10/04/2015 Vascular Surgeon Referral fo r Peripheral vascular disease Thank you for seeing my patient Lisa Bartholomew who has swelling and pallor in her right foot and ankle. Referring Physician: [facility], Encounter Date: 12/19/2015 Results Created Date Observation Date Name Description Value Unit Range Abnormal Flag Note LastModifiedBy Organization Detail LastModifiedTime 06/28/20 15 06/27/2015 MRI, lumba r spine No observ ation record ed. [facility] ([facility]) [address], [place], [address], 07/10/2015 14:19:57 Result Notes None recorded. Problems Name Problem SNOMED Code Status Onset Date Resolution Date Notes Provider Name and Address Organization Details Recorded Time Brachial radiculitis 14310529 Active Claire franco MD [address] , [address], [place], [address], [place] [facility] 6 10:38:43 Degeneration of cervical intervertebral disc 34697707 Active Claire franco MD [address] , [address], [place], [address], [place] [facility] 6 10:38:43 Shoulder joint pain 790343811 Active Claire franco MD [address] , [address], [place], [address], [place] [facility] 6 10:38:43 Muscle pain 32815138 Active Claire franco MD [address] , [address], [place], [address], [place] [facility] 6 10:38:43 Lumbosacral radiculitis 74588526 Active Claire franco MD [address] , [address], [place], [address], [place] [facility] 6 10:38:43 Peripheral vascular disease 890063382 Active Claire franco MD [address] , [address], [place], [address], [place] [facility] 6 10:38:43 Problem Notes None recorded. Procedures Surgical History Date Name Laterality Status Provider Name and Address Organization Details Recorded Time 11/26/19 16 Lumbar Epidural steroid injection under fluoroscopic guidance completed Claire Martin MD [address] , [address], [place], [address], [place] [facility] 11/26/2015 15:57:22 09/03/19 16 Lumbar Epidural steroid injection under fluoroscopic guidance completed Claire Martin MD [address] [facility] , [address], [place], [address], [place] [facility] 09/04/2015 10:37:16 06/21/20 15 Intra-articular shoulder steroid injection under ultrasound guidance completed Claire Martin MD [address] [facility] [address], [place], [address], [place] [facility] 06/21/2015 11:51:31 05/27/20 15 Trigger Point Injections under ultrasound guidance completed Claire Martin MD [address] [facility] [address], [place], [address], [place] [facility] 05/28/2015 11:05:57 Cholecystectomy completed Alyce Crawford [place] [facility] 05/23/2015 15:03:23 Thyroid Surgery completed Alyce Crawford [place] [facility] 05/23/2015 15:03:23 Back Surgery completed Alycekatina Crawford [place] [facility] 05/23/2015 15:03:23 Knee Surgery completed Alyce Crawford [place] [facility] 05/23/2015 15:05:32 Back Surgery completed Alycekatina Crawford [place] [facility] 05/23/2015 15:05:32 Imaging Results Imaging Date Name Status LastModified by Organiz ation Details LastModified Time 06/27/2015 MRI, lumbar spine completed [facility] ([facility]) [address] [place], [address], 07/10/2015 14:19:57 Procedure Notes None recorded. Medical Equipment None Reported. Allergies Allergen ID Allergen Name Allergen Category Reaction Reaction Severity Criticality Documentation Date Start Date Code Code System Note Provider Name and Address Organization Details Recorded Time codeine medicatio n Not available Not available Not available 05/23/2015 2670 RxNorm Stoma ch Pains Alyce gonzalez [place] [facility] 14:56:42 57797 morphine medicatio n Not available Not available Not available 05/23/2015 7052 RxNorm Passe d Out [facility] 5 14:56:42 53207 Product containin g penicilli n (product) medicatio n rash severe Not available 07/08/2016 14613 8001 SNOMED [facility] 6 14:12:18 Medications Name Sig Start Date Stop Date Status Note LastModified by Organization Details LastModified Time azithromycin 250 mg tablet active Not Available Not Availabl e Not Available pravastatin 40 mg tablet active Not Available Not Available No t Available benzonatate 200 mg capsule active Not Available Not Availab le Not Available topiramate 25 mg tablet TAKE 1 TABLET BY MOUTH TWICE DAILY 2015 active Not Available Not Available Not Avai lable lidocaine 5 % topical patch active Not Available Not Availabl e Not Available warfarin 5 mg tablet TK 1 T PO D UTD active Not Available Not Available No t Available omeprazole 20 mg capsule,delaye d release TK ONE C PO ONCE D active Not Available Not Available No t Available Cartia XT 240 mg capsule,extend ed release TK ONE C PO QD active Not Available Not Available No t Available hydrochlorothi azide 25 mg tablet TK 1 T PO QD UTD active Not Available Not Available No t Available Novolog U-100 Insulin aspart 100 unit/mL subcutaneous solution INJECT UP TO 76 UNITS D VIA THE V GO DELIVERY SYSTEM active Not Available Not Available No t Available methylpredniso lone 4 mg tablets in a dose pack active Not Available Not Available No t Available losartan 100 mg tablet TK 1 T PO ONCE D active Not Available Not Available No t Available amoxicillin 875 mg-potassium clavulanate 125 mg tablet active Not Available Not Availabl e Not Available FreeStyle Lite Strips U UTD TO TEST BLOOD SUGAR QID AND PRN active Not Available Not Available No t Available Prevnar 13 (PF) 0.5 mL intramuscular syringe active Not Available Not Available Not Available V-GO 40 device active Not Available No t Available Not Available Fluvirin 45 mcg (15 mcg x 3)/0.5 mL intramuscular suspension active Not Available Not Available N ot Available Fluzone High-Dose (PF) 180 mcg/0.5 mL intramuscular syringe active Not Available Not Available Not Available Vitals Date Recorded Oxygen saturation Oxygen saturation in Arterial blood by Pulse oximetry Heart rate Systolic blood pressure Diastolic blood pressure Provider Name and Address Organization Details Last Updated DateTime 5 99 % 99 % 65 /min 151 mm[Hg] 61 mm[Hg] Alyce Crawford [facility] 5 13:48:36 Date Recorded Heart rate Oxygen saturation Oxygen saturation in Arterial blood by Pulse oximetry Systolic blood pressure Diastolic blood pressure Provider Name and Address Organization Details Last Updated DateTime 6 86 /min 98 % 98 % 149 mm[Hg] 70 mm[Hg] Alyce Crawford [facility] 6 13:46:18 Date Recorded Oxygen saturation Oxygen saturation in Arterial blood by Pulse oximetry Heart rate Systolic blood pressure Diastolic blood pressure Provider Name and Address Organization Details Last Updated DateTime 6 99 % 99 % 87 /min 142 mm[Hg] 59 mm[Hg] Alyce [facility] 6 10:16:40 Date Recorded Oxygen saturation Oxygen saturation in Arterial blood by Pulse oximetry Heart rate Systolic blood pressure Diastolic blood pressure Provider Name and Address Organization Details Last Updated DateTime 6 100 % 100 % 82 /min 148 mm[Hg] 66 mm[Hg] Alyce [facility] 6 13:17:17 Date Recorded Oxygen saturation Oxygen saturation in Arterial blood by Pulse oximetry Heart rate Systolic blood pressure Diastolic blood pressure Provider Name and Address Organization Details Last Updated DateTime 6 99 % 99 % 82 /min 129 mm[Hg] 60 mm[Hg] Alyce Crawford [facility] 6 13:13:15 Social History Question Answer Notes LastModified by Organizat ion Details LastModified Time Tobacco Smoking Status Never Smoker Not Available [employer] 06/07/2020 03:16:12 What Is Your Level Of Alcohol Consumption? None [id number] Information not available 06/07/2020 Are You Currently Employed? No [id number] Information not available 06/07/2020 Which Illicit Or Recreational Drugs Have You Used? No [id number] Information not available 06/07/2020 Education 2 Year College [email or web address] Information not available 05/23/2015 What Is Your Occupation? Retired [id number] Information not available 06/07/2020 Live Alone Or With Others? With Others Information not available 05/23/2015 Marital Status Informatio n not available 05/23/2015 Sex: Unknown Functional Status None recorded. Mental Status None recorded. Family History Relationship Description Onset Age of this Age Resolved Age Notes LastModified by Organization Details LastModified Time Mother Malignant neoplastic disease [email or web address] Not available 11/22 10:21:49 Medical History Condition Response Anxiety Disorder Y Diabetes Y Headache Y Arthritis Y Hypertension Y Hypothyroidism Y GERD/Reflux Y Gynecological HistoryNo gynecological history recorded. Obstetrics History GPAL:G 0 P 0 0 0 0 Past Encounters Encounter ID Performer Location Encounter Start Date Encounter Closed Date Diagnosis/Indication Diagnosis SNOMED-CT Code Diagnosis ICD10 Code Diagnosis Note [id number] Claire Martin MD PAIN OFFICE [address] [place] [address] 05/23/2015 14:13:49 05/27/2015 13:14:28 Brachial radiculitis 66368206 M54.12 Degenerati on of cervical intervertebral disc 77890996 M50.30 Muscle pain 92411671 M79 .1 Shoulder joint pain 2679 82487 M25.512 [id number] Claire Martin MD PAIN OFFICE [address] [place] [address] 05/27/2015 12:57:17 05/28/2015 11:06:41 Muscle pain 09198793 M79.1 Degenerati on of cervical intervertebral disc 76191102 M50.30 Brachial radiculitis 278 31182 M54.12 Shoulder joint pain 2679 88528 M25.512 [id number] Claire Martin MD PAIN OFFICE [address] [place] [address] 06/20/2015 10:45:15 06/21/2015 09:18:13 Shoulder joint pain 280725098 M25.512 [id number] Claire Martin MD PAIN OFFICE [address] [place] [address] 06/21/2015 10:45:26 06/21/2015 11:52:08 Shoulder joint pain 452068799 M25.512 [id number] Claire Martin MD PAIN OFFICE [address] [place] [address] 07/10/2015 13:27:18 07/10/2015 14:46:57 Lumbosacral radiculitis 11696650 M54.17 [id number] Claire Martin MD PAIN OFFICE [address] [place] [address] 09/03/2015 13:13:26 09/04/2015 10:38:03 Muscle pain 76057314 M79.1 Degenerati on of cervical intervertebral disc 76217746 M50.32 Lumbosacra l radiculitis 53383768 M54.17 Brachial radiculitis 278 73866 M54.12 Shoulder joint pain 2679 02637 M25.512 [id number] Claire Martin MD PAIN OFFICE [address] [place] [address] 10/04/2015 09:56:13 10/04/2015 10:49:26 Muscle pain 61343902 M79.1 Degenerati on of cervical intervertebral disc 94350691 M50.32 Lumbosacra l radiculitis 42525347 M54.17 Brachial radiculitis 278 70088 M54.12 Shoulder joint pain 2679 84258 M25.512 [id number] Claire Martin MD PAIN OFFICE [address] [place] [address] 11/26/2015 13:10:14 11/26/2015 15:57:51 Muscle pain 87594808 M79.1 Degenerati on of cervical intervertebral disc 99870717 M50.32 Lumbosacra l radiculitis 13023050 M54.17 Brachial radiculitis 278 05392 M54.12 Shoulder joint pain 2679 28008 M25.512 [id number] Claire Martin MD PAIN OFFICE [address] [place] [address] 12/19/2015 13:02:30 12/20/2015 11:35:28 Muscle pain 99472260 M79.1 Degenerati on of cervical intervertebral disc 39101475 M50.32 Lumbosacra l radiculitis 02697382 M54.17 Brachial radiculitis 278 71017 M54.12 Shoulder joint pain 2679 88606 M25.512 Peripheral vascular disease 203390771 I73.89 Health Concerns Section Related Observation LastModified by Organization Detai ls LastModified Time None Recorded Concern Status LastModified by Organization Details LastModified Time None Recorded Advance Directives Directive None Recorded Payers Encounter Date Sequence Insurance Name Policy Number Policy Diaz Covered Member ID Diaz Member ID Guarantor Name 07/10/2015 1 [employer] - MEDICARE ADVANTAGE PLAN (MEDICARE REPLACEMENT HMO) [id number] 01 Lisa Ruest [id number] Lisa Ruest 09/03/2015 1 [employer]VANTAGE PLAN (MEDICARE REPLACEMENT HMO) [id number] Lisa Ruest [id number] Lisa Ruest 10/04/2015 1 [employer]AGE PLAN (MEDICARE REPLACEMENT HMO) [id number] 01 Lisa Ruest [id number] Lisa Ruest 11/26/2015 1 [employer]AGE PLAN (MEDICARE REPLACEMENT HMO) [id number] 01 Lisa Ruest [id number] Lisa Ruest 12/19/2015 1 [employer]VANTAGE PLAN (MEDICARE REPLACEMENT HMO) [id number] 01 Lisa Ruest [id number] Lisa Ruest Notes Date Note Type Note Provider Name and Address Organization Details Recorded Time 07/10/2015 text/html She is here for MRI review. MRI Lumbar spine showsThere has been interval laminectomy at L3??-L4 and L4??-L5 with decompression of the canal. Degenerative disease has progressed since 2008 at almost all levels. This includes a new central extrusion at L1??2 resulting in moderate canal stenosis and compression of the L2 nerve roots. There is a new right paracentral/foramin al protrusion at L2??-L3 impinging on the descending right L3 nerve root and causing moderate to severe right neural foraminal stenosis. There is severe right neural foraminal stenosis at L3-??L4, worse than the prior study, with compression of the right L3 nerve root. There is severe left neural foraminal stenosis at L4??L5, worse than the prior study, with compression of the left L4 nerve root. She states the pain is intermittent. The pain is aggravated by walking long distances. She has no history of bladder or bowel incontinence. She is doing well after shoulder steroid injection. She is on an insulin pump and her blood glucose level this morning was 81. Claire Martin MD [address] [facility] , [address], [place], [address], [facility] - [facility] 07/15/2015 08:40:09 09/03/2015 text/html She is here for a trial of lumbar epidural steroid injection under fluoroscopic guidance. She has stopped coumadin for the procedure and her INR is 1.1. She has an insulin pump. Her blood glucose level was 101 this morning. Claire Martin MD [address] [facility] , [address], [place], [address], [facility] - Pain Management 09/05/2015 15:25:42 10/04/2015 text/html She is here for a follow up after a lumbar epidural steroid injection under fluoroscopic guidance. She reports some pain benefit. She states now her greatest pain is in her right buttock region. She is having a hard time walking long distances. She has been seen at physical therapy and is having an evaluation done for an electric scooter . She also has two sessions every week for the next four weeks. She is using a cane. She states her blood glucose levels were increased after the injection. She states now they are back to baseline. Her blood glucose level this morning was 94. She has no history of bladder or bowel incontinence. Claire Martin MD [address] [facility] , [address], [place], [address], [facility] - Pain Management 10/09/2015 15:53:37 11/26/2015 text/html She is here for a repeat lumbar epidural steroid injection under fluoroscopic guidance. She has stopped coumadin for the procedure and her INR is 1.1. She has an insulin pump. Claire Martin MD [address] [facility] , [address], [place], [address], [facility] - Pain Management 12/02/2015 09:06:38 12/19/2015 text/html She is here for a follow up after a lumbar epidural steroid injection under fluoroscopic guidance. She reports good pain benefit for two weeks with pain back to baseline. She is complaining of swelling in her right foot and ankle and feels her right foot looks paler than her left foot. She has an insulin pump and is having better control of her blood glucose level. She has numbness and tingling in her right lower extremity. She has no history of bladder or bowel incontinence. Claire Martin MD [address] [place] [address] , [address], [place], [address], [place] [facility] 12/30/2015 10:49:39 OBGyn Episode No OBEpisode recorded.
== END 2024-12-21 14:52 | disposition home or self-care (01) ==
LOC: HO.HKAS 13:02
PROVIDERS: PCP Internal Medicine; Visit Provider Internal Medicine Nephrology
DX: E11.29 Type 2 diabetes mellitus with other diabetic kidney complication (principal); R80.9 Proteinuria, unspecified; N18.31 Chronic kidney disease, stage 3a; I10 Essential (primary) hypertension
CPT/HCPCS: 99214

== ENCOUNTER → 2024-12-21 13:02 | Outpatient (BNVA) | payer OTHER, SELFPAY | PROVIDERS: PCP Internal Medicine; Visit Provider Internal Medicine Nephrology ==

== ENCOUNTER 2025-05-24 13:34 | Outpatient (REF) | payer OTHER, SELFPAY ==
--- OUTSIDE RECORDS SUMMARY | 2024-10-17 09:30 | XMS_ITS ---
Author Organization [facility] Address [address] [facility] [place] [address] Care Team Providers Care Health Information Specialist Name Role Phone Chauncey HICKEY, Willie Primary Care Provider Unavailab Shruthi Dumont Unavailable [phone] Varsha Edward Unavailable Unavailable Encounters Encounter Location Date Provider Diagnosis [address] [address] 10/17/2024 Shruthi Sanchez Plan Of Treatment Next Appt Details Provider Name:Shruthi A Daniel , 06/20/2025 01:30:00 PM, [address] [place] [address] [place], [id number], Progress Notes * Lisa BARTHOLOMEW ADOB:[birth year] (79 yo F)Acc No.[id number]:10/17/2024 Progress Note Patient: Lisa BELLE Provider: Davey Sanchez DPM :1945 A ge:78 Y S ex:Female Date:10/17/2024 Address:[address] [facility] [id number] Pcp:Willie Grossman MD Subjective: * Chief Complaints: * * Medical History: Objective: * Vitals: Assessment: Plan: * Treatment: * Images: * The named appointment provid er may or may not be the originator of this progress note, and it is not deemed complete until electronically signed by the appointment provider. Sign off status: Pending * Provider: Davey Sanchez DPM Date: 0 10/17/2024 Generated for Elmer camp/Carlos/Savanna on: 1 03:06 PM EDT
--- OUTSIDE RECORDS SUMMARY | 2024-11-17 09:30 | XMS_ITS ---
Author Organization [facility] Address [address] [facility] [place] [address] Care Team Providers Care Patternmaker Metal Name Role Phone Chauncey HICKEY, Willie Primary Care Provider Unavailab Shruthi Dumont Unavailable [phone] Varsha Edward Unavailable Unavailable REASON FOR VISIT Dr Marshall Encounters Encounter Location Date Provider Diagnosis [address] [id number] 11/17/2024 Shruthi Sanchez Plan Of Treatment Next Appt Details Provider Name:Shruthi Sanchez , 06/20/2025 01:30:00 PM, [address] [place] [address], [id number], Progress Notes * Lisa BARTHOLOMEW ADOB:[birth year] (79 yo F)Acc No.[id number]:11/17/2024 Progress Note Patient: Lisa BELLE Provider: Davey Sanchez DPM :1945 A ge:79 Y S ex:Female Date:11/17/2024 Address:[address] [facility] [id number] Pcp:Willie Grossman MD Subjective: * Chief Complaints: * [address] Marshall[address] * Medical History: Objective: * Vitals: Assessment: Plan: * Treatment: * Images: * The named appointment provid er may or may not be the originator of this progress note, and it is not deemed complete until electronically signed by the appointment provider. Sign off status: Pending * Provider: Davey Sanchez DPM Date: 0 11/17/2024 Generated for Elmer camp/Carlos/[place]anna on: 1 03:06 PM EDT
--- OUTSIDE RECORDS SUMMARY | 2025-05-24 15:06 | XMS_ITS | Data Portability ---
Author Organization [facility], PAIN OFFICE Address [address] [facility],[address] [address] Assessment Encounter Date Assessment Date Assessment LastModified by Organization Details LastModified Time 07/10/2015 07/10/2015 Lisa Bartholomew is a 69 year old woman with complaints of low back pain radiating into right buttock region. She is here for review of MRI Lumbar spine. MRI Lumbar spine showsThere has been interval laminectomy at L3 -L4 and L4 -L5 with decompression of the canal. Degenerative disease has progressed since 2008 at almost all levels. This includes a new central extrusion at L1 2 resulting in moderate canal stenosis and compression of the L2 nerve roots. There is a new right paracentral/foramin al protrusion at L2 -L3 impinging on the descending right L3 nerve root and causing moderate to severe right neural foraminal stenosis. There is severe right neural foraminal stenosis at L3- L4, worse than the prior study, with compression of the right L3 nerve root. There is severe left neural foraminal stenosis at L4- L5, worse than the prior study, with compression of the left L4 nerve root.I recommend a trial of lumbar epidural steroid injection under fluoroscopic guidance. The risks and benefits of the procedure were discussed in detail. She wishes to proceed. An appointment has been booked for the same. She needs a dedicated regional driver on the day of the procedure. She [...] back pain radiating into right buttock region. MRI Lumbar spine showsThere has been interval laminectomy at L3 -L4 and L4 -L5 with decompression of the canal. Degenerative disease has progressed since 2009 at almost all levels. This includes a new central extrusion at L1 2 resulting in moderate canal stenosis and compression of the L2 nerve roots. There is a new right paracentral/foramin al protrusion at L2 -L3 impinging on the descending right L3 nerve root and causing moderate to severe right neural foraminal stenosis. There is severe right neural foraminal stenosis at L3- L4, worse than the prior study, with compression of the right L3 nerve root. There is severe left neural foraminal stenosis at L4- L5, worse than the prior study, with compression of the left L4 nerve root. She is here fora trial of lumbar epidural steroid injection under fluoroscopic guidance.The risks and benefits of the procedure were discussed in detail. She wishes to proceed. She can restart coumadin and follow instructions per her hospice educator for dosing and INR testing. [email or web address] Not available 09/04/2015 10:35:33 10/04/2015 10/04/2015 Lisa Barthoolmew is a 69 year old woman with complaints of low back pain radiating into right buttock region. MRI Lumbar spine showsThere has been interval laminectomy at L3 -L4 and L4 -L5 with decompression of the canal. Degenerative disease has progressed since 2009 at almost all levels. This includes a new central extrusion at L1 -2 resulting in moderate canal stenosis and compression of the L2 nerve roots. There is a new right paracentral/foramin al protrusion at L2 -L3 impinging on the descending right L3 nerve root and causing moderate to severe right neural foraminal stenosis. There is severe right neural foraminal stenosis at L3- L4, worse than the prior study, with compression of the right L3 nerve root. There is severe left neural foraminal stenosis at L4- L5, worse than the prior study, with compression [...] November 2015.The risks and benefits of the procedure were discussed in detail. She wishes to proceed. An appointment has been booked for the same. She needs a dedicated regional driver on the day of the procedure. She is on coumadin and needs to be off coumadin for 5 days for the procedure. Her PT/INR needs to be less than 1.1 on the day of the procedure. She needs Ativan 2mg prior to the procedure. 2. Neurosurgical evaluation with Dr. Emery in regards to new MRI findings. 3. Continue with physical therapy . [email or web address] Not available 10/04/2015 10:49:01 11/26/2015 11/26/2015 Lisa Bartholomew is a 69 year old woman with complaints of low back pain radiating into right buttock region. MRI Lumbar spine showsThere has been interval laminectomy at L3 -L4 and L4 -L5 with decompression of the canal. Degenerative disease has progressed since 2008 at almost all levels. This includes a new central extrusion at L1 -2 resulting in moderate canal stenosis and compression of the L2 nerve roots. There is a new right paracentral/foramin al protrusion at L2 -L3 impinging on the descending right L3 nerve root and causing moderate to severe right neural foraminal stenosis. There is severe right neural foraminal stenosis at L3- L4, worse than the prior study, with compression of the right L3 nerve root. There is severe left neural foraminal stenosis at L4- L5, worse than the prior study, with compression of the left L4 nerve root. She is here for a repeat lumbar epidural steroid injection under fluoroscopic guidance in November 2015.The risks and benefits of the procedure were discussed in detail. She wishes to proceed. She can restart coumadin tonight. She can follow up in 4-6 weeks. [email or web address] Not available 11/26/2015 14:23:13 12/19/2015 12/19/2015 Lisa Bartholomew is a 69 year old woman with complaints of low back pain radiating into right buttock region. MRI Lumbar spine showsThere has been interval laminectomy at L3 -L4 and L4 -L5 with decompression of the canal. Degenerative disease has progressed since 2008 at almost all levels. This includes a new central extrusion at L1 -2 resulting in moderate canal stenosis and compression of the L2 nerve roots. There is a new right paracentral/foramin al protrusion at L2 -L3 impinging on the descending right L3 nerve root and causing moderate to severe right neural foraminal stenosis. There is severe right neural foraminal stenosis at L3- L4, worse than the prior study, with compression of the right L3 nerve root. There is severe left neural foraminal stenosis at L4- L5, worse than the prior study, with compression [...] 2015 016 [email or web address] Jenn Beltrán MD, [address] [facility] [address], [place], [address], 6 11:12:36 neurosurger y referral - Thank you for seeing my patient Ms. Bartholomew. I have attached her MRI report and she will bring CD with her for visit. She had back surgery by you 5 years ago doing well until recently. 2015 016 LOVE Emery MD, [address], [facility] [address], [place], [address], 6 17:11:53 Procedures None recorded. Surgeries None recorded. Imaging None recorded. Medication Orders None recorded. Patient TargetsNo targets recorded. Patient Instructions Encounter Date Encounter Id Patient Instructions Last Modified By Organization Details Last Modified Time 07/10/2015 [id number] She was advised against bed rest lasting longer than four days and to continue activities as tolerated. [email or web address] Not available 07/10/2015 14:46:22 09/03/2015 [id number] She was advised against bed rest lasting longer than four days and to continue activities as tolerated. [email or web address] Not available 09/04/2015 10:33:01 10/04/2015 [id number] She was advised against bed rest lasting longer than four days and to continue activities as tolerated. [email or web address] Not available 10/04/2015 10:44:54 11/26/2015 [id number] She is a diabetic . Blood sugar levels may temporarily increase after steroid injections. She was advised to check blood glucose levels three times a day post procedure. If levels are above 250, she was advised to contact the PCP. [email or web address] Not available 11/26/2015 15:55:36 She was advised against bed rest lasting longer than four days and to continue activities as tolerated. [email or web address] Not available 11/26/2015 14:22:23 12/19/2015 [id number] She was advised against bed rest lasting [...] r spine No observ ation record ed. [email or web address] [facility] [address], [place], [address], 07/10/2015 14:19:57 Result Notes None recorded. Problems Name Problem SNOMED Code Status Onset Date Resolution Date Notes Provider Name and Address Organization Details Recorded Time Brachial radiculitis 55734333 Active Claire franco MD [address] , [address], [place], [address], [place] [facility] 6 10:38:43 Degeneration of cervical intervertebral disc 95942633 Active Claire franco MD [address] , [address], [place], [address], [place] [facility] 6 10:38:43 Shoulder joint pain 100006390 Active Claire franco MD [address] , [address], [facility] [place], [address], [place] [facility] 6 10:38:43 Muscle pain 12167463 Active Claire franco MD [address] , [address], [facility] [place], [address], [place] [facility] 6 10:38:43 Lumbosacral radiculitis 04971037 Active Claire franco MD [address] , [address], [facility] [place], [address], [place] [facility] 6 10:38:43 Peripheral vascular disease 145245473 Active Claire franco MD [address] , [address], [facility] [place], [address], [place] [facility] 6 10:38:43 Problem Notes None recorded. Procedures Surgical History Date Name Laterality Status Provider Name and Address Organization Details Recorded Time 11/26/19 16 Lumbar Epidural steroid injection under fluoroscopic guidance completed Claire Martin MD [address] , [address], [facility] [place], [address], [place] [facility] 11/26/2015 15:57:22 09/03/19 16 Lumbar Epidural steroid injection under fluoroscopic guidance completed Claire Martin MD [address] , [address], [facility] [place], [address], [place] [facility] 09/04/2015 10:37:16 06/21/20 15 Intra-articular shoulder steroid injection under ultrasound guidance completed Claire Martin MD [address] , [address], [place], [address], [place] [facility] 06/21/2015 11:51:31 05/27/20 15 Trigger Point Injections under ultrasound guidance completed Claire Martin MD [address] , [address], [place], [address], [place] [facility] 05/28/2015 11:05:57 Cholecystectomy completed Alyce Crawford [place] - [facility] 05/23/2015 15:03:23 Thyroid Surgery completed Alyce Crawford [place] [facility] 05/23/2015 15:03:23 Back Surgery completed Alyce Crawford [place] [facility] 05/23/2015 15:03:23 Knee Surgery completed Alyce Crawford [place] [facility] 05/23/2015 15:05:32 Back Surgery completed Alyce Crawford [place] [facility] 05/23/2015 15:05:32 Imaging Results None recorded. Procedure Notes None recorded. Medical Equipment None Reported. Allergies Allergen ID Allergen Name Allergen Category Reaction Reaction Severity Criticality Documentation Date Start Date Code Code System Note Provider Name and Address Organization Details Recorded Time 96939 codeine medicatio n Not available Not available Not available 05/23/2015 2670 RxNorm Stoma ch Pains Alyce gonzalez [place] - [facility] 5 14:56:42 82775 morphine medicatio n Not available Not available Not available 05/23/2015 7052 RxNorm Passe d Out Alyce gonzalez [place] - [facility] 5 14:56:42 89821 Product containin g penicilli n (product) medicatio n rash severe Not available 07/08/2016 72928 8001 SNOMED Alyce gonzalez [place] - [facility] 6 14:12:18 Medications Name Sig [...] Available No t Available Not Available Fluvirin 3394-5375 45 mcg (15 mcg x 3)/0.5 mL intramuscular suspension active Not Available Not Available N ot Available Fluzone High-Dose (PF) 180 mcg/0.5 mL intramuscular syringe active Not Available Not Available Not Available Vitals Date Recorded Heart rate Oxygen saturation Oxygen saturation in Arterial blood by Pulse oximetry Systolic And Diastolic Provider Name and Address Organization Details Last Updated DateTime 09/03/2015 86 /min 98 % 98 % 149/70 mm[Hg] Alyce [facility] 6 13:46:18 Date Recorded Oxygen saturation Oxygen saturation in Arterial blood by Pulse oximetry Heart rate Systolic And Diastolic Provider Name and Address Organization Details Last Updated DateTime 10/04/2015 99 % 99 % 87 /min 142/59 mm[Hg] Alyce Seth [facility] 6 10:16:40 Date Recorded Oxygen saturation Oxygen saturation in Arterial blood by Pulse oximetry Heart rate Systolic And Diastolic Provider Name and Address Organization Details Last Updated DateTime 11/26/2015 100 % 100 % 82 /min 148/66 mm[Hg] Alyce Crawford [place] [facility] 6 13:17:17 Date Recorded Oxygen saturation Oxygen saturation in Arterial blood by Pulse oximetry Heart rate Systolic And Diastolic Provider Name and Address Organization Details Last Updated DateTime 12/19/2015 99 % 99 % 82 /min 129/60 mm[Hg] Alyce Crawford [place] [facility] 6 13:13:15 Date Recorded Oxygen saturation Oxygen saturation in Arterial blood by Pulse oximetry Heart rate Systolic And Diastolic Provider Name and Address Organization Details Last Updated DateTime 07/10/2015 99 % 99 % 65 /min 151/61 mm[Hg] Alyce Crawford [place] [facility] 5 13:48:36 Social History Question Answer Notes LastModified by Organizat ion Details LastModified Time Tobacco Smoking Status Never [facility]oker Not [facility] 06/07/2020 03:16:12 Which Illicit Or Recreational Drugs Have You Used? No [id number] Information not available 06/07/2020 Education 2 Year [employer] Information not available 05/23/2015 Live Alone Or With Others? With Others [place] Information not available 05/23/2015 Marital Status [place] Informatio n not available 05/23/2015 Sex: Unknown Functional Status Question Answer Note LastModified by Organization D etails LastModified Time What is your level of alcohol consumption? None [id number] Information not available 06/07/2020 Are you currently employed? No [id number] Information not available 06/07/2020 What is your occupation? Retired [place] Information not available 05/23/2015 Mental Status None recorded. Family History Relationship Description Onset Age of this Age Resolved Age Notes LastModified by Organization Details LastModified Time Mother Malignant neoplastic disease [email or web address] Not available 11/22 10:21:49 Medical History Condition Response Diabetes Y Anxiety Disorder Y Headache Y Arthritis Y Hypertension Y Hypothyroidism Y GERD/Reflux Y Gynecological HistoryNo gynecological history recorded. Obstetrics History GPAL:G 0 P 0 0 0 0 Past Encounters Encounter ID Performer Location Encounter Start Date Encounter Closed Date Diagnosis/Indication Diagnosis SNOMED-CT Code Diagnosis ICD10 Code Diagnosis IMO Codes Diagnosis Note [id number] Claire Martin MD [facility] [address] [place] [address] 05/23/2015 14:13:49 05/27/2015 13:14:28 Brachial radiculitis 24860827 M54.12 Degenerati on of cervical intervertebral disc 18698258 M50.30 Muscle pain 72846105 M79 .1 Shoulder joint pain 2679 44141 M25.512 [id number] Claire Martin MD PAIN OFFICE [address] [place] [address] 05/27/2015 12:57:17 05/28/2015 11:06:41 Muscle pain 50578290 M79.1 Degenerati on of cervical intervertebral disc 15312342 M50.30 Brachial radiculitis 278 81932 M54.12 Shoulder joint pain 2679 81212 M25.512 [id number] Claire Martin MD PAIN OFFICE [address] [place] [address] 06/20/2015 10:45:15 06/21/2015 09:18:13 Shoulder joint pain 436696153 M25.512 [id number] Claire Martin MD PAIN OFFICE [address] [place] [address] 06/21/2015 10:45:26 06/21/2015 11:52:08 Shoulder joint pain 559413525 M25.512 [id number] Claire Martin MD PAIN OFFICE [address] [place] [address] 07/10/2015 13:27:18 07/10/2015 14:46:57 Lumbosacral radiculitis 50902791 M54.17 [id number] Claire Martin MD PAIN OFFICE [address] [place] [address] 09/03/2015 13:13:26 09/04/2015 10:38:03 Muscle pain 03001470 M79.1 Degenerati on of cervical intervertebral disc 99329183 M50.32 Lumbosacra l radiculitis 39556747 M54.17 Brachial radiculitis 278 37291 M54.12 Shoulder joint pain 2679 02421 M25.512 [id number] Claire Martin MD [facility] [address] [place] [address] 10/04/2015 09:56:13 10/04/2015 10:49:26 Muscle pain 21981591 M79.1 Degenerati on of cervical intervertebral disc 93762168 M50.32 Lumbosacra l radiculitis 22420881 M54.17 Brachial radiculitis 278 55685 M54.12 Shoulder joint pain 2679 33344 M25.512 [id number] Claire Martin MD [facility] [address] [place] [address] 11/26/2015 13:10:14 11/26/2015 15:57:51 Muscle pain 04209192 M79.1 Degenerati on of cervical intervertebral disc 24915267 M50.32 Lumbosacra l radiculitis 78562320 M54.17 Brachial radiculitis 278 23830 M54.12 Shoulder joint pain 2679 45683 M25.512 [id number] Claire Martin MD [facility] [address] [place] [address] 12/19/2015 13:02:30 12/20/2015 11:35:28 Muscle pain 78609885 M79.1 Degenerati on of cervical intervertebral disc 23125366 M50.32 Lumbosacra l radiculitis 54027981 M54.17 Brachial radiculitis 278 59885 M54.12 Shoulder joint pain 2679 89738 M25.512 Peripheral vascular disease 168468334 I73.89 Health Concerns Section Related Observation LastModified by Organization Detai ls LastModified Time None Recorded Concern Status LastModified by Organization Details LastModified Time None Recorded Advance Directives Directive None Recorded Payers Insurance Date Sequence Insurance Name Policy Number Policy Diaz Covered Member ID Diaz Member ID Guarantor Name 06/24/2015 1 [facility] [id number] Lisa Bartholomew [id number] Lisa Bartholomew 04/11/2016 1 [facility] - MEDICARE ADVANTAGE PLAN (MEDICARE REPLACEMENT HMO) [id number] Lisa Bartholomew [id number] Lisa Bartholomew Notes Date Note Type Note Provider Name and Address Organization Details Recorded Time 07/10/2015 text/html She is here for MRI review. MRI Lumbar spine showsThere has been interval laminectomy at L3 -L4 and L4 -L5 with decompression of the canal. Degenerative disease has progressed since 2008 at almost all levels. This includes a new central extrusion at L1 2 resulting in moderate canal stenosis and compression of the L2 nerve roots. There is a new right paracentral/foramin al protrusion at L2 -L3 impinging on the descending right L3 nerve root and causing moderate to severe right neural foraminal stenosis. There is severe right neural foraminal stenosis at L3- L4, worse than the prior study, with compression of the right L3 nerve root. There is severe left neural foraminal stenosis at L4 L5, worse than the prior study, with compression of the left L4 nerve root. She states the pain is intermittent. The pain is aggravated by walking long distances. She has no history of bladder or bowel incontinence. She is doing well after shoulder steroid injection. She is on an insulin pump and her blood glucose level this morning was 81. Claire Martin MD [address] [facility] , [address], [place], [address], [facility] 07/15/2015 08:40:09 09/03/2015 text/html She is here for a trial of lumbar epidural steroid injection under fluoroscopic guidance. She has stopped coumadin for the procedure and her INR is 1.1. She has an insulin pump. Her blood glucose level was 101 this morning. Claire Martin MD [address] [facility] , [address], [place], [address], [facility] 09/05/2015 15:25:42 10/04/2015 text/html She [...] or bowel incontinence. Claire Martin MD [address] [facility] , [address], [place], [address], [facility] Pain [facility] 10/09/2015 15:53:37 11/26/2015 text/html She is here for a repeat lumbar epidural steroid injection under fluoroscopic guidance. She has stopped coumadin for the procedure and her INR is 1.1. She has an insulin pump. Claire Martin MD [address] [facility] , [address], [place], [address], [facility] Pain [facility] 12/02/2015 09:06:38 12/19/2015 text/html She [...] or bowel incontinence. Claire Martin MD [address] [facility] , [address], [place], [address], [facility] Pain [facility] 12/30/2015 10:49:39 OBGyn Episode No OBEpisode recorded.
--- OUTSIDE RECORDS SUMMARY | 2025-05-24 15:06 | XMS_ITS | Clinical Summary ---
Author Organization [facility] Address [address] [facility] [place] [address] Phone Care Team Providers Care Air Traffic Instructor Name Role Phone Willie Grossman MD Primary Care Provider [phone] Allergies Active Allergy Reactions Criticality Noted Date Comments Codeine Other 08/11/2007 Severe stomach pain Morphine Sulfate Other 08/11/2007 Passes out Penicillins 06/25/2021 Vancomycin 06/25/2021 Other Reaction(s): Rash/Dermatitis Medications MULTIVITAMIN ORAL 1 Tablet daily. 08/11/2007 Active OMEGA-3 FATTY ACIDS ORAL Take 1 Capsule by mouth daily. Active ascorbic acid (VITAMIN C) 500 mg tablet Take 2 tablets (1,000 mg total) by mouth. 1 tablet 3 times weekly 08/11/2007 Active acetaminophen (TYLENOL) 500 mg tablet Take 2 Tablets by mouth every 4 hours as needed for Pain. Active calcium carbonate-vitami n D3 600 mg-5 mcg (200 unit) per tablet Take 1,200 mg by mouth daily. Active cetirizine (ZyrTEC) 10 mg tablet Take 10 mg by mouth daily. Active dilTIAZem CD (Cartia XT) 240 mg 24 hr capsule 1 CAPSULE DAILY 08/11/2007 Active gabapentin (NEURONTIN) 300 mg capsule Take 1 capsule (300 mg total) by mouth at bedtime. 06/21/2021 Active insulin lispro (HumaLOG U-100 Insulin) 100 unit/mL injection sliding scale Active insulin glargine (Lantus U-100 Insulin) 100 unit/mL injection 46 Units at bedtime. Active losartan (COZAAR) 100 mg tablet Take 100 mg by mouth daily. Active omeprazole (PriLOSEC) [address] capsule 1 CAPSULE DAILY 08/11/2007 Active pravastatin (PRAVACHOL) 40 mg tablet Take 40 mg by mouth daily. Active rivaroxaban (Xarelto) 20 mg tablet TAKE 1 TABLET BY MOUTH DAILY 11/02/2023 Active mirabegron (Myrbetriq) 25 mg 24 hr tablet Take 1 tablet (25 mg total) by mouth 1 (one) time each day. Active senna (SENOKOT) 8.6 mg tablet Take 1 tablet (8.6 mg total) by mouth at bedtime. Active vit A/vit C/vit E/zinc/copper (PRESERVISION AREDS ORAL) Take 1 capsule by mouth 2 (two) times a day. Active torsemide (DEMADEX) 20 mg tabletIndication s:Edema, unspecified type Take 1 tablet (20 mg total) by mouth 1 (one) time each day. 90 each 3 03/14/2025 03/14/20 26 Active Active Problems Problem Noted Date Diagnosed Date Leg edema, left 10/31/2024 Bruit of right carotid artery 04/05/2023 Overview (07/28/2024): Last Assessment & Plan: Patient underwent evaluation for carotid bruit with a carotid duplex Completed 06/2023 showing no significant stenosis in the bilateral internal carotid arteries. Edema 07/10/2022 Overview (07/28/2024): Last Assessment & Plan: Her leg edema is better. There is still some edema. Again I have encouraged her to use her Lasix at an extra dose of 40 mg to see if this helps to improve her leg edema as well as her dyspnea. Assessment & Plan (03/14/2025 12:16 PM EDT): Patient still complains of significant lower extremity edema has no cellulitis or skin breakdown organ to discontinue her Lasix and start torsemide 20 mg a day she is given a lab slip to check a basic metabolic profile in about 1 week. Venous duplex scan showed no evidence of DVT or venous insufficiency. She does have support socks but she is unable to wear them the 2 are comfortable Orders: torsemide (DEMADEX) 20 mg tablet; Take 1 tablet (20 mg total) by mouth 1 (one) time each day. Basic metabolic panel; Future Dyspnea 12/25/2021 Overview (07/28/2024): Last Assessment & Plan: Her breathing has been stable. We will continue to monitor. She will use increased doses of Lasix if she has more leg edema. She states that when we tried this in the past it did not make much of a difference with her breathing. Diastolic CHF ([facility] V24, [facility] V28) Overview (07/28/2024): Last Assessment & Plan: Patient is history of chronic diastolic heart failure and is doing well on present dose of furosemide 20 mg once a day. She denies any clinical symptoms of heart failure and she appears euvolemic on physical examination. Assessment & Plan (03/14/2025 12:16 PM EDT): Patient with diastolic heart failure switching furosemide to torsemide Mitral regurgitation 06/26/2021 Overview (07/28/2024): Last Assessment & Plan: She does have mitral and tricuspid regurgitation. Her last echocardiogram showed a slight increase in the TR as well as pulmonary pressures. She does have some shortness of breath and leg edema. Of asked her to increase her Lasix to 20 mg twice a day for a few days to see if this helps to improve her weight, leg edema and breathing. She will call me on Wednesday to let me know how she does. We will decide based on that if we need to increase her dose or just have her take it on an as-needed basis. Atrial fibrillation ([facility] V24, [facility] V28) 1 08/25/2020 Overview (07/28/2024): Last Assessment & Plan: Patient's atrial fibrillation is well rate controlled on her present dose of diltiazem 240 mg once a day. She continues on anticoagulation with Xarelto. Patient's creatinine clearance is 51 mL/min. We will have to monitor this closely as she is on Xarelto 20 mg once a day. If her creatinine falls below 50 and she would meet criteria for decreased Xarelto dose. Assessment & Plan (03/14/2025 12:16 PM EDT): Patient's A-fib rate is controlled. Patient remains on Xarelto for anticoagulation due to elevated CHADS2 score Assessment & Plan (10/31/2024 2:12 PM EDT): Longstanding persistent atrial fibrillation. On rate control. Have told the patient if she continues to lose large amounts of weight we may need to decrease the strength of her rate controlling medical therapy to prevent orthostasis. At the present time she is stable she will continue with anticoagulation. She understands need to discontinue anticoagulation if a blood producing procedure occurs Orders: ECG 12 lead Diabetes ([facility] V24, [facility] V28) 06/25/2021 Diverticulitis of colon without hemorrhage 08/22 Overview (07/28/2024): Incidental finding at colonoscopy 1992. Poorly controlled type 2 james betes mellitus ([facility] V24, [facility] V28) 08/11/2007 GERD (gastroesophageal reflux disease) 7 Overview (07/28/2024): EGD wnl 05/21/1993 on no acid veneer jointer meds. Also neg 05/27/2011. Hyperlipidemia 08/11/2007 Overview (07/28/2024): Last Assessment & Plan: Her lipids have been under good control. She is doing well on her pravastatin. We did discuss that this could be causing some of her muscle aches. I have suggested that she stop it for a week to see if things improve. She will let us know how she is feeling. If she feels better off the pravastatin then we will need to come up with a different plan for her hyperlipidemia. She is been tried on Lipitor in the past and did poorly on this as well. Hypertension 08/11/2007 Overview (07/28/2024): Last Assessment & Plan: Patient's blood pressure is under excellent control with a reading today of 110/68. She will continue on losartan 100 mg daily as prescribed. Encounters Date Type Department Care Team Description 05/10/2025 Telephone [facility] [address] [place] [address] Jamal Soares MD 03/14/2025 10:20 AM EDT Office Visit [facility] [address] [place] [address] Jamal Soares MD Edema, unspecified type (Primary Dx); Chronic diastolic congestive heart failure (CMS/HCC V24, CMS/HCC V28); Permanent atrial fibrillation (CMS/HCC V24, CMS/HCC V28) from Last 3 Months Immunizations Immunization Administration Dates Next Due Pneumococcal polysaccharide 23 valent (Pneumovax 23) 2yo and older 12/23/2001 Surgical History Surgery Date Site/Laterality Comments CHOLECYSTECTOMY PROCEDURE: HISTORICAL CHOLECYSTECTOMY OTHER SURGICAL HISTORY PROCEDURE: HISTORICAL SUBTOTAL THYROIDECTOMY; COMMENT: Multinodular nontoxic goiter COLONOSCOPY 12/22/1999 PROCEDURE: [facility] COLONOSCOPY STOMA DX INCLUDING COLLJ SPEC SPX; COMMENT: Negative examination COLONOSCOPY W/ BIOPSIES 05/21/1993 PROCEDURE: [facility] COLONOSCOPY W/BIOPSY SINGLE/MULTIPLE; COMMENT: 5 mm dim tub ad right colon ESOPHAGOGASTRODUODENOSCOPY 05/21/1993 PROCEDURE: VA ESOPHAGOGASTRODUODENOSCOPY TRANSORAL DIAGNOSTIC; COMMENT: wnl COLONOSCOPY 12/26/2008 PROCEDURE: [facility] COLONOSCOPY FLX DX W/COLLJ SPEC WHEN PFRMD; COMMENT: Negative ESOPHAGOGASTRODUODENOSCOPY 05/27/2011 PROCEDURE: [facility] ESOPHAGOGASTRODUODENOSCOPY TRANSORAL DIAGNOSTIC; COMMENT: [facility]; [facility]; small HH only. BREAST BIOPSY Right PROCEDURE: BX BREAST; PERC NEEDLE CORE W/IMAG GUID; COMMENT: neg CARPAL TUNNEL RELEASE 2010 Right PROCEDURE: HISTORICAL CARPAL TUNNEL REL BLADDER SUSPENSION 02/2010 PROCEDURE: HISTORICAL BLADDER SUSPENSION OTHER SURGICAL HISTORY 2009 PROCEDURE: HISTORY OTHER; COMMENT: Laminectomy KNEE ARTHROSCOPY 2004 Right PROCEDURE: VA ARTHROSCOPY AID TX SPINE&/FX KNEE W/O FIXJ OTHER SURGICAL HISTORY 2004 PROCEDURE: HISTORY OTHER; COMMENT: Spinal fusion , cervical Medical History Medical History Date Comments Other and unspecified hyperlipidemia 08/11/2007 DX:Other and unspecified hyperlipidemia Hypertension 08/11/2007 DX:Hypertension Type II or unspecified type diabetes mellitus without mention of complication, not stated as uncontrolled 08/11/2007 DX:Type II or unspecified ty pe diabetes mellitus without mention of complication, not stated as uncontrolled Personal history of colonic polyps 08/11/2007 DX:Personal history of colonic polyps GERD (gastroesophageal reflu x disease) 08/11/2007 DX:GERD (gastroesophageal re flux disease) Diverticulosis of colon (wit hout mention of hemorrhage) 08/22/2007 DX:Diverticulosis of colon ( without mention of hemorrhage); COMMENT: Incidental finding at colonoscopy 1992. Edema DX:Edema History of prolapse of bladder D X:History of prolapse of bladder Insulin pump status DX:Insulin p ump status Meniere disorder DX:Meniere diso rder Osteoarthritis DX:Osteoarthriti s Osteomyelitis of thoracic sp ine ([facility] V24, [facility] V28) DX:Osteomyelitis of thoraci c spine ([facility]) Peripheral neuropathy DX:Periphe ral neuropathy Plantar fasciitis DX:Plantar fas ciitis Renal insufficiency DX:Renal ins ufficiency Diabetes ([facility] V24, [facility] V28) DX:Diabetes ([facility]) Lumbar disc disease DX:Lumbar di sc disease CAP (community acquired pneumonia) DX:CAP (community acquired pneumonia) Family History Medical History Relation Name Comments Diabetes Father Breast cancer Mother Breast cancer Other 1 mat aunt and cousin Breast cancer Other 2 1st cousin Colon cancer Paternal Grandmother Diagnos is at age older than 70 Relation Name Status Comments Father Mother Other 1 mat aunt and cousin Other 2 1st cousin Paternal Grandmother Social History Tobacco Use Types Packs/Day Years Used Date Smoking Tobacco: Never Smokeless Tobacco: Never Alcohol Use Standard Drinks/Week Comments Never 0 (1 standard drink = 0.6 oz pur e alcohol) Comments No Sex and Gender Information Value Date Recorded Sex Assigned at Not on file Legal Sex Female 5:19 AM EST Gender Identity Not on file Sexual Orientation Not on file Obstetrics History Para Term AB IAB SAB Ectopic Multiple Livin g Live Births 2 2 2 2 Date Outcome GA Total Labor Labor/2nd/3rd Weight Sex Type Anes PTL Cindi A1 A5 Name Clin Term Term Last Filed Vital Signs Vital Sign Reading Time Taken Comments Blood Pressure 126/70 03/14/2025 10:26 AM EDT Pulse 108 03/14/2025 10:26 AM EDT Temperature - - Respiratory Rate - - Oxygen Saturation 99% 03/14/2025 10:26 AM EDT Inhaled Oxygen Concentration - - Weight 96.6 kg (213 lb) 03/14/2025 10:26 AM EDT Height 167.6 cm (5' 6 ) 03/14/2025 10:26 AM EDT Body Mass Index 34.38 03/14/2025 10:26 AM EDT Plan of Treatment Upcoming Encounters Date Type Department Care Team (Late st Contact Info) Description 09/07/2025 9:20 AM EST Office Visit [facility] [address] [place] [address] Jamal Soares MD [address] [place] [address] [address] [place] [address] Health Maintenance Due Date Last Done Comments Diabetes: Annual Foot Exam 1956 Diabetes: Annual Retina Eye Exam 1955 Zoster Vaccines (2 of 3) 10/18/2013 08/23/2013 Cholesterol Screening (Lipid Panel) 08/01/2022 03/10/2003 Falls Risk Assessment 08/01/2022 Hepatitis C Screening 08/01/2022 Medicare Annual Wellness Visit 08/01/2022 Osteoporosis Screening (Bone Density Screening) 08/01/2022 Social Influencers of Health Screening 08/01/2022 Diabetes: Annual Urine Albumin-Creatinine Ratio (uACR) 08/06/2022 12/09/2002 Diabetes: Blood Sugar Control Test (HGBA1C) 08/06/2022 10/06/2003 Depression Screening 08/23/2024 COVID-19 Vaccine ( season) 2025 06/12/2024, 07/05/2023, 06/19/2021, Additional history exists Influenza Vaccine (#1) 2025 , 05/22/2024, 07/05/2023, Additional history exists DTaP,Tdap,and Td Vaccines (3 - Td or Tdap) 02/20/2026 02/21/2016, 08/23/2011 Diabetes: Annual GFR (Glomerular Filtration Rate) 03/31/2026 03/31/2025, 06/02/2003 Hypertension/CHF/CAD Annual BMP Blood Test 03/31/2026 03/31/2025, 06/02/2003 Pneumococcal Vaccine: 50+ Years Completed 03/02/2015, 08/23/2014, 08/23/2013, Additional history exists RSV Immunization Adult Patients Completed 07/03/2024 RSV Immunization Patients Under 20 months Aged Out 07/03/2024 No longer eligible based on patient's age to complete this topic HIB Vaccines Aged Out No longer eligi ble based on patient's age to complete this topic HPV Vaccines Aged Out No longer eligi ble based on patient's age to complete this topic Hepatitis A Vaccines Aged Out No long er eligible based on patient's age to complete this topic Hepatitis B Vaccines Aged Out No long er eligible based on patient's age to complete this topic IPV Vaccines Aged Out No longer eligi ble based on patient's age to complete this topic MMR Vaccines Aged Out No longer eligi ble based on patient's age to complete this topic Meningococcal ACWY Vaccine Aged Out N o longer eligible based on patient's age to complete this topic Meningococcal B Vaccine Aged Out No l onger eligible based on patient's age to complete this topic Varicella Vaccines Aged Out No longer eligible based on patient's age to complete this topic Procedures Procedure Name Priority Date/Time Associated Diagnosis Comments BASIC METABOLIC PANEL Routine 03/31/2025 11:20 AM EDT HEMOGLOBIN A1C Routine 10/06/2003 LIPID PANEL Routine 03/10/2003 HM URINE ALBUMIN CREATININE RATIO Routine 12/09/2002 from Last 3 Months or Most Recently Relevant to Health Maintenance Results * (ABNORMAL) Basic metabolic panel (03/31/2025 11:20 AM EDT) Glucose 161(H) 70 - 99 mg/dL [facility] Blood Urea Nitrogen (BUN) 43(H) 8 - 27 mg/dL [facility] 1 Creatinine 1.31(H) 0.57 - 1.00 mg/dL [facility] 1 eGFR 42(L) >59 mL/min/1.7 3 [facility] 1 BUN/Creatinine Ratio 33(H) 12 - 28 [facility] 1 Sodium 138 134 - 144 mmol/L [facility] 1 Potassium 4.5 3.5 - 5.2 mmol/L [facility] 1 Chloride 95(L) 96 - 106 mmol/L [facility] 1 Carbon Dioxide 24 20 - 29 mmol/L [facility] 1 Calcium 9.5 8.7 - 10.3 mg/dL [facility] 1 03/31/2025 11:2 0 AM EDT 03/31/2025 Narrative [facility] 1 - 04/01/2025 8:06 AM EDT Performed at: 01 - [facility] [address] [id number] Recoating Machine Operator: Rose Marie Nolasco MD, Phone: [phone] Jamal Soares MD LAB BLOOD ORDERABLES Final Res ult [facility] 1 * (ABNORMAL) Hemoglobin A1c (10/06/2003) Hemoglobin A1C 8.0(A) 4.0 - 6.0 % Blood Venous blood specimen / Unknown Historical Provider LAB BLOOD ORDERABLES Kira l Result * (ABNORMAL) Lipid panel (03/10/2003) LDL/HDL Ratio 4 <=5 Triglycerides 95 <=150 mg/dL Cholesterol 209(A) <=200 mg/dL HDL 57 >=40 mg/dL LDL Cholesterol 133(A) <=100 mg/dL Blood Venous blood specimen / Unknown Historical Provider LAB BLOOD ORDERABLES Kira l Result * Urine Albumin Creatinine Ratio (12/09/2002) Urine Albumin Creatinine Ratio Abstracted Result [facility] Historical Provider HEALTH MAINTENANCE Final Result from Last 3 Months or Most Recently Relevant to Health Maintenance Insurance [employer] [place] [employer] Care Teams Air Traffic Instructor Relationship Specialty Start Date End Date Willie Grossman MD [id number] Lyle Nuno [place] PCP - General Internal Medicine 08/12/16
--- OUTSIDE RECORDS SUMMARY | 2025-05-24 15:06 | XMS_ITS | Patient Health Record ---
[facility] Address [address] [facility] [place] [address] Care Team Providers Care Pricer Name Role Phone Willie Grossman MD Primary Care Provider Unavailab Agustín Dumontmie Unavailable [phone] Varsha Edward Unavailable Unavailable Allergies Allergen (clinical drug ingredient) Drug/Non Drug Allergy documented on EMR Reaction Allergy Type Onset Date Status codeine Codeine Unknown Drug Allergy Active morphine Morphine Unknown Drug Allergy Active Penicillin Unknown Drug Allergy Active Results Component Value Reference Range Notes HEMOGLOBIN A1C (GLYCOHEMOGLO BIN) Reviewed date:08/27/2024 09:04:43 AM Interpretation: Performing Lab: Notes/Report: HEMOGLOBIN A1C % (HH) 8.2 HEMOGLOBIN A1C (GLYCOHEMOGLO BIN) Reviewed date:12/19/2024 02:01:50 PM Interpretation: Performing Lab: Notes/Report: HEMOGLOBIN A1C % (HH) 7.5 HEMOGLOBIN A1C (GLYCOHEMOGLO BIN) Reviewed date:03/20/2025 12:58:38 PM Interpretation: Performing Lab: Notes/Report: HEMOGLOBIN A1C % (HH) 7.0 Reason For Referral No Information Medications Medication SIG (Take, Route, Frequency, Duration) Notes Start Date End Date Status Calcium 500/Vitamin D 1200 mg Active Xarelto 15 MG Orally Active Multivitamins daily Active Gabapentin 300 MG 1 capsule 3 times a night; Duration: 90 days Active Losartan Potassium-HCTZ 100 mg once daily Active Lantus Active Omeprazole 20 mg every other day Active Norethindron-Ethinyl Estrad-Fe Not-Taking Bellevue 3 1200 mg daily Acti ve Extra Depth Orthopedic Shoes (1 Pair) with Customized Heat Molded Multidensity Innersoles (3 Pair) as directed Dx: IDDM/Polyneuropathy (E10.42), Hammertoe Foot Deformity (M20.41,M20.42), Preulcerative Skin Lesion(s) (L85.1) Not-Taking Tylenol 1 tablet as needed Orally prn Active Cartia XT 240 mg once daily No t-Taking Pravastatin Sodium 40 MG Orally once daily Active Iron Not-Taking Topiramate Active Loratadine 10 MG 1 tablet Orally Once a day; Duration: 30 day(s) Not-Taking Vitamin C Active hydroCHLOROthiazide 25 mg once daily Not-Taking Extra Depth Orthopedic Shoes (1 Pair) with Customized Heat Molded Multidensity Innersoles (3 Pair) as directed Dx: NIDDM/Polyneuropathy (E11.42), Hammertoe Foot Deformity (M20.41,M20.42), Preulcerative Skin Lesion(s) (L85.1 12/19/2024 Active Vitamin D 1000 mg No t-Taking PreserVision AREDS A ctive NovoLOG 15 units before a meal Not-Taking Aspirin 81 mg once daily Not-T aking Immunizations Vaccine Route Administration Date Status Comme nts Influenza Unknown 12/25/2015 Administered Influenza Unknown 05/20/2017 Administered Influenza Unknown 06/08/2017 Administered Influenza Unknown 06/14/2018 Administered Influenza Unknown 06/19/2019 Administered Influenza Unknown 06/07/2023 Administered Influenza Unknown 06/13/2024 Administered Pneumococcal Unknown 05/29/2015 Administered COVID-19 Pfizer BioNTech Vaccine Unknown 06/19/2021 Administered 1st vaccine 11/06/20 2nd vaccine 11/27/20 Social History Tobacco Use: Social History Observation Description Date Details (start date - stop date) Never Smoker NA - NA Tobacco use other than smoking: Question Answer Notes Are you an other tobacco user? No Tobacco Control (Standard) Question Answer Notes Tobacco use: Nonsmoker Additional Findings: Tobacco non-user Current no nsmoker AUDIT-C (Standard) Question Answer Notes Did you have a drink containing alcohol in the p ast year? No Points 0 Interpretation Negative Problems Problem Type SNOMED Code ICD Code Onset Dates Problem Status W/U Status Risk Notes Problem Acquired hammer toe of right foot (9778376848728522 ) Other hammer toe(s) (acquired), right foot (M20.41) Active confirmed Problem Acquired hammer toe of left foot (8943526263047958 ) Other hammer toe(s) (acquired), left foot (M20.42) Active confirmed Problem Polyneuropathy due to type 2 diabetes mellitus (307196274) Type 2 diabetes mellitus with diabetic polyneuropathy (E11.42) Active confirmed Vital Signs Blood pressure diastolic 70 mm Hg 03/20/2025 Height 5 ft 6 in in 03/20/2025 Blood pressure systolic 130 mm Hg 03/20/2025 Weight 204 lbs 03/20/2025 BMI 32.92 kg/m2 03/20/2025 Procedures Procedure Date Ordered Date Performed Result Body Sit e 26202-SGRBMYS NAIL, 6 OR MORE 07/05/2024 N/A 75920-KKZQ SKIN LESIONS, 2 TO 4 07/05/2024 N/A 69213-YGALBAF NAIL, 6 OR MORE 12/19/2024 N/A 02881-PWNG SKIN LESIONS, 2 TO 4 12/19/2024 N/A 99712-HQDMYAJ NAIL, 6 OR MORE 03/20/2025 N/A 02445-CEMH SKIN LESIONS, OVER 4 03/20/2025 N/A Encounters Encounter Location Date Provider Diagnosis [address] [address] 07/05/2024 Shruthi Black Type 2 diabetes mellitus with diabetic polyneuropathy E11.42 and Tinea unguium B35.[address] [address] 12/19/2024 Shruthi Black Type 2 diabetes mellitus with diabetic polyneuropathy E11.42 ; Tinea unguium B35.1 ; Other hammer toe(s) (acquired), right foot M20.41 and Other hammer toe(s) (acquired), left foot M20.[address] [address] 03/20/2025 Shruthi Black Type 2 diabetes mellitus with diabetic polyneuropathy E11.42 and Tinea unguium B35.1 [facility] [address] [place] [address] 10/03/2024 Shruthi Black Assessments Encounter Date Diagnosis (ICD Code) Assessment Notes Treatment Notes Treatment Clinical Notes Section Notes 07/05/2024 Tinea unguium (ICD-10 - B35.1) 07/05/2024 Type 2 diabetes mellitus with diabetic polyneuropathy (ICD-10 - E11.42) 12/19/2024 Type 2 diabetes mellitus with diabetic polyneuropathy (ICD-10 - E11.42) 03/20/2025 Tinea unguium (ICD-10 - B35.1) 03/20/2025 Type 2 diabetes mellitus with diabetic polyneuropathy (ICD-10 - E11.42) 12/19/2024 Tinea unguium (ICD-10 - B35.1) 12/19/2024 Other hammer toe(s) (acquired), right foot (ICD-10 - M20.41) Patient Educated with: DIABETIC FOOT CARE INSTRUCTIONS. pdf (DIABETIC FOOT CARE INSTRUCTIONS. pdf) 12/19/2024 Other hammer toe(s) (acquired), left foot (ICD-10 - M20.42) 03/20/2025 Other Plan Of Treatment Pending Test Test Name Order Date Hemoglobin A1c 06/24/2015 79514-ECPWVTU NAIL, 6 OR MORE 09/23/2015 97703-JJQVKUQ NAIL, 6 OR MORE 02/28/2015 59623-WYVZXRB NAIL, 6 OR MORE 06/24/2015 57984-VLCCEDH NAIL, 6 OR MORE 03/15/2014 34639-HOXTUQR NAIL, 6 OR MORE 06/14/2014 49820-DJPQQYI NAIL, 6 OR MORE 09/13/2014 54768-KTDUGSV NAIL, 6 OR MORE 11/29/2014 79079-UGNTYOQ NAIL, 6 OR MORE 06/08/2011 40217-CMBKWIK NAIL, 6 OR MORE 09/14/2011 08030-KLSPNPK NAIL, 6 OR MORE 01/21/2012 40796-COEMCNQ NAIL, 6 OR MORE 04/21/2012 25654-FRDTCKJ NAIL, 6 OR MORE 06/30/2012 57470-YIMZYHQ NAIL, 6 OR MORE 09/01/2012 02636-YJMHLTZ NAIL, 6 OR MORE 12/01/2012 83908-BIVYKFJ NAIL, 6 OR MORE 03/02/2013 89031-ERTRRDV NAIL, 6 OR MORE 06/15/2013 51498-BCHJYCR NAIL, 6 OR MORE 09/14/2013 36998-OIQNITG NAIL, 6 OR MORE 12/14/2013 38900-GQYZOJX NAIL, 6 OR MORE 12/25/2015 89363-UYXBPCL NAIL, 6 OR MORE 06/10/2016 10043-MFXHUSV NAIL, 6 OR MORE 09/10/2016 05458-DSJEJOU NAIL, 6 OR MORE 12/03/2016 20704-IBMUXAQ NAIL, 6 OR MORE 03/18/2017 37657-FYGAALC NAIL, 6 OR MORE 06/17/2017 91768-YQZCWHW NAIL, 6 OR MORE 09/16/2017 63051-XZJIJGK NAIL, 6 OR MORE 01/13/2018 21189-AJBQGJC NAIL, 6 OR MORE 05/04/2018 62139-LTMXGFL NAIL, 6 OR MORE 08/03/2018 42230-VMDFGON NAIL, 6 OR MORE 11/02/2018 50462-PQTWYQZ NAIL, 6 OR MORE 02/02/2019 31034-IFIUCNG NAIL, 6 OR MORE 06/21/2019 77713-DEIBSXC NAIL, 6 OR MORE 09/21/2019 60240-QUYNVAY NAIL, 6 OR MORE 03/15/2020 40438-AUDHOTS NAIL, 6 OR MORE 06/18/2020 76180-RKNOIFE NAIL, 6 OR MORE 09/20/2020 44939-GVKQVTY NAIL, 6 OR MORE 12/25/2020 50864-QWXJQSW NAIL, 6 OR MORE 04/29/2021 56289-JEHGSKO NAIL, 6 OR MORE 08/01/2021 97427-EESTMYR NAIL, 6 OR MORE 11/12/2021 16776-QRIPQBF NAIL, 6 OR MORE 02/13/2022 93810-YFYORJF NAIL, 6 OR MORE 05/20/2022 66576-IPPFPGB NAIL, 6 OR MORE 09/16/2022 55686-YCRMFGR NAIL, 6 OR MORE 01/26/2023 68678-HZXFTBA NAIL, 6 OR MORE 06/08/2023 09167-RBJEGHJ NAIL, 6 OR MORE 09/14/2023 66165-WRXESNL NAIL, 6 OR MORE 12/14/2023 06263-BBDMVCV NAIL, 6 OR MORE 03/21/2024 76551-JTKAZQL NAIL, 6 OR MORE 07/05/2024 54165-IQMTNUB NAIL, 6 OR MORE 12/19/2024 51196-FFPMDEZ NAIL, 6 OR MORE 03/20/2025 55381-Ikxmiacj Plate 09/14/2023 14370-Vilrfbpo Plate 08/01/2021 46703-Qdsjwncc Plate 11/12/2021 07102-Gdtgmsrj Plate 06/21/2019 85077-Zvjywtpb Plate 12/14/2013 98832-Mvmwgvdb Plate 09/14/2013 36592-Cejmqdkd Plate 06/15/2013 76537-Zdgjvoqh Plate 03/02/2013 23747-Khffaalv Plate 12/01/2012 56069-Obquhthr Plate 09/01/2012 45349-Ogrfudef Plate 01/21/2012 86657-Ejlqjqub Plate 11/29/2014 96729-Ohteryjs Plate 09/13/2014 71606-Imvqereu Plate 06/14/2014 87243-Qpglfkrc Plate 03/15/2014 51982-Bmmptold Plate 06/24/2015 14989-Fzgexpmv Plate 02/28/2015 74972-Djltphxk Plate 06/30/2012 54741-Jfqbajlm Plate 09/23/2015 92403-Eureatve Plate Each Additional 08/2015 82501-Kujhhnix Plate Each Additional 05/2013 60591-Glnxpaym Plate Each Additional 04/2015 23195-Gvcdhokw Plate Each Additional 09/2014 71620-Vimrrigb Plate Each Additional 93553-Fmawduta Plate Each Additional 77814-Hfvsfgbj Plate Each Additional 69858-Pspazrec Plate Each Additional 04/2015 46037-Wxoralfi Plate Each Additional 06/2013 50018-Wmlspslu Plate Each Additional 06/2013 11765-Ntmdsuqz Plate Each Additional 23862-Lvjdgnrw Plate Each Additional 90609-Revbvtmv Plate Each Additional 80001-BFOO SKIN LESIONS, OVER 4 03/20/20 25 86556-GIIJ SKIN LESIONS, 2 TO 4 12/20/19 25 59413-FGCS SKIN LESIONS, 2 TO 4 07/05/20 24 73877-GFDS SKIN LESIONS, 2 TO 4 03/21/20 24 61728-BUNT SKIN LESIONS, 2 TO 4 12/14/19 24 75872-VWPX SKIN LESIONS, 2 TO 4 09/14/19 24 11095-DIFR SKIN LESIONS, 2 TO 4 06/08/20 36044-OCYM SKIN LESIONS, 2 TO 4 06/14/20 14 60774-WZAU SKIN LESIONS, 2 TO 4 11/13/19 75567-CPQN SKIN LESIONS, 2 TO 4 08/01/20 21 41666-KDWD SKIN LESIONS, 2 TO 4 04/29/20 21 42929-LWPJ SKIN LESIONS, 2 TO 4 01/27/20 11058-XQSP SKIN LESIONS, 2 TO 4 09/16/19 23 67245-NYCO SKIN LESIONS, 2 TO 4 05/20/20 22 26898-BPZZ SKIN LESIONS, 2 TO 4 02/14/20 90758-ATMV SKIN LESIONS, 2 TO 4 06/21/20 19 43824-RGIQ SKIN LESIONS, 2 TO 4 09/21/19 88491-CEVH SKIN LESIONS, 2 TO 4 03/15/20 31686-TSWE SKIN LESIONS, 2 TO 4 02/03/20 19 17828-UFTY SKIN LESIONS, 2 TO 4 11/03/19 98664-KPWO SKIN LESIONS, 2 TO 4 12/26/19 24730-PCCS SKIN LESIONS, 2 TO 4 09/20/19 21 88364-TYXS SKIN LESIONS, 2 TO 4 06/18/20 20 71861-AJEO SKIN LESIONS, 2 TO 4 08/03/20 18 48430-ASMS SKIN LESIONS, 2 TO 4 05/04/20 18 58857-OAOT SKIN LESIONS, 2 TO 4 01/14/20 18 73230-YUJB SKIN LESIONS, 2 TO 4 09/16/19 18 70376-VOOY SKIN LESIONS, 2 TO 4 06/17/20 17 93072-BLQP SKIN LESIONS, 2 TO 4 12/04/19 17 49599-HZLU SKIN LESIONS, 2 TO 4 03/18/20 17 39516-RPFK SKIN LESIONS, 2 TO 4 09/10/19 17 02872-KSYW SKIN LESIONS, 2 TO 4 06/10/20 16 76662-LKRN SKIN LESIONS, 2 TO 4 12/15/19 14 51182-IPPB SKIN LESIONS, 2 TO 4 09/14/19 14 58913-YIRJ SKIN LESIONS, 2 TO 4 06/15/20 13 42728-ZXXW SKIN LESIONS, 2 TO 4 03/02/20 13 56027-IHQS SKIN LESIONS, 2 TO 4 12/02/19 13 39918-XVPF SKIN LESIONS, 2 TO 4 09/01/19 13 76462-ZBPI SKIN LESIONS, 2 TO 4 06/30/20 12 09839-YNMV SKIN LESIONS, 2 TO 4 06/08/20 11 79275-ZPSS SKIN LESIONS, 2 TO 4 04/21/20 12 10097-WUBT SKIN LESIONS, 2 TO 4 01/21/20 12 92518-NTIB SKIN LESIONS, 2 TO 4 09/14/19 12 79967-OLUU SKIN LESIONS, 2 TO 4 11/30/19 15 22124-XCKX SKIN LESIONS, 2 TO 4 09/13/19 15 50874-VMJW SKIN LESIONS, 2 TO 4 03/15/20 14 21953-NPDD SKIN LESIONS, 2 TO 4 06/24/20 15 14734-GDLP SKIN LESIONS, 2 TO 4 02/29/20 15 73410-UBMV SKIN LESIONS, 2 TO 4 12/25/19 16 41778-LCXI SKIN LESIONS, 2 TO 4 09/23/19 16 86215- Removal of Foreign Body, Subcut 0 12/14/2023 08818,A4059-RBN TENDON SHEATH/LIGAMENT 0 12/25/2020 45327,O8164-RYU TENDON SHEATH/LIGAMENT 0 09/20/2020 29648,C7263-PES TENDON SHEATH/LIGAMENT 1 78659,T1000-CJY TENDON SHEATH/LIGAMENT 0 01/21/2012 Next Appt Details Provider Name:Shruthi Guzman Daniel , 06/20/2025 01:30:00 PM, [address] [facility], [place], [address], Insurance Providers Payer Name Payer Address Payer Phone Subscriber Number Group Number Insured Name Patient Relationship to Insured Coverage Start Date Coverage End Date [employer] [address] [place] [address] [id number] Lisa Bartholomew Self - patient is the insured Medical (General) History Medical History History ICD Code thyroid disorder mumps menieres disease measles hypertension headaches/migraines gall bladder problems diabetic chicken pox back, hip, knee pain Arthritis cholesterol reflux Surgical History Surgery Date(Month/Year) cholecystectomy 1974 knee surgery 2004 neck surgery 2005 thyroidectomy 1994 carpal tunnel surgery hysterectomy 04/30/23 Hospitalization History Reason Date(Month/Year) [facility]- back issues 10/2023 [facility] incontinence 07/26/2023 [facility]- surgery, hysterectomy 04/30/23 [facility]- dehydration, pmeumonia 03/19/21 [facility] heart issues 11/2020 Rehab for 14 days 03/30/16-04/06/16 [facility] - cortisone injection right knee
--- OUTSIDE RECORDS SUMMARY | 2025-05-24 15:06 | XMS_ITS | Data Portability ---
Author Organization [place] - [facility], Allergy Address [address] [place] [address] Care Team Providers Care Feedmobile Driver Name Role Phone SHAYAN GIMENEZ Primary Care Provider [phone] Assessment No assessment recorded. Plan of Treatment Reminders Order Date Submit Date Provider Last Modified By Organization Details Last Modified Time Details Appointments None recorded. Lab None recorded. Referral None recorded. Procedures None recorded. Surgeries None recorded. Imaging None recorded. Medication Orders triamcinolo ne acetonide 0.1 % dental paste 2023 024 [id number], [address] [place] [address], [phone], 4 13:51:54 Patient TargetsNo targets recorded. Patient InstructionsNo instructions recorded. Reason for Referral None Reported. Problems Name Problem SNOMED Code Status Onset Date Resolution Date Notes Provider Name and Address Organization Details Recorded Time Bilateral tinnitus 837756816681 2 Active 2017 Tinnitu s, bilater al; Note: Date Diagnos ed: 02/09/20 18 3:31 PM (H93.13 ) Not Available [facility] 4 03:06:54 Headache 64214297 Active 2017 Facial pain NOS; Note: Date Diagnos ed: 02/09/20 18 3:33 PM (R51) Not Available [facility] 4 03:06:55 Bleeding from nose 276108131 Active 2017 Epistax is; Note: Date Diagnos ed: 02/09/20 18 3:31 PM (R04.0) Not Available [facility] 4 03:06:55 Nasal congestion 40203169 Active 2017 Nasal congest ion; Note: Date Diagnos ed: 02/09/20 18 3:31 PM (R09.81 ) Not Available [facility] 4 03:06:54 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 - [facility] 4 13:45:45 Problem Notes None recorded. Medical Equipment None Reported. Allergies Allergen ID Allergen Name Allergen Category Reaction Reaction Severity Criticality Documentation Date Start Date Code Code System Note Provider Name and Address Organization Details Recorded Time 044074 codeine sulfate medicatio n other Not available Not available 01/04/2024 98565 RxNorm React ion: unkno wn, unspe cifie d;; Not Available [facility] 4 01:20:01 923463 morphine medicatio n other Not available Not available 01/04/2024 7052 RxNorm React ion: unkno wn, unspe cifie d;; Not Available [facility] 4 01:20:02 940678 penicilli n V potassium medicatio n other Not available Not available 01/04/2024 66723 5 RxNorm React ion: unkno wn, unspe cifie d;; Not Available [facility] 4 01:20:03 Medications Name Sig Start Date Stop Date Status Note LastModified by Organization Details LastModified Time pravastati n 40 mg tablet active Not Available Not Available Not Available diltiazem CD 240 mg capsule,ex tended release 24 hr TAKE 1 CAPSULE BY MOUTH DAILY active Not Available Not Available No t Available triamcinol one acetonide 0.1 % dental paste Take 1 applicati on by dental route. active Not Available Not Available No t Available Humalog U-100 Insulin 100 unit/mL subcutaneo us solution 2017 active Medicatio n ID: [id number] Du ration Value: 12 Brand Name: Humalog U-100 Insulin S end Method: E-Prescri bed Subs Allowed: subs OK Specia l Instructi on: INJECT UP TO 76 UNITS SQ D VIA VGO KIT Medic ationGene ricName: Humalog U-100 Insulin Not Available Not Available Not Available gabapentin 300 mg capsule TAKE 1 CAPSULE BY MOUTH THREE TIMES A DAY active Not Available Not Available No t Available omeprazole 20 mg capsule,de layed release active Not Available Not Available Not Available furosemide 20 mg tablet active Not Available Not Available Not Available losartan 100 mg tablet active Not Available Not Available Not Available FreeStyle Lite Strips 2017 active Medicatio n ID: [id number] Du ration Value: 25 Brand Name: FreeStyle Lite Strips Se nd Method: E-Prescri bed Subs Allowed: subs OK Specia l Instructi on: USE DIRECTED TO TEST BLOOD GLUCOSE 4 TIMES A DAY AND PRN Medic ationGene ricName: FreeStyle Lite Strips Not Available Not Available Not Available Lantus Solostar U-100 Insulin 100 unit/mL (3 mL) subcutaneo pen active Not Available Not Available Not Available Humalog KwikPen (U-100) Insulin 100 unit/mL subcutaneo 2017 active Medicatio n ID: [id number] Du ration Value: 25 Brand Name: Humalog KwikPen Insulin S end Method: E-Prescri bed Subs Allowed: subs OK Specia l Instructi on: INJECT UP TO 20 UNITS UNDER THE SKIN TID WITH MEALS Med icationGe nericName : Humalog KwikPen Insulin Not Available Not Available Not Available Xarelto 15 mg tablet 2017 active Medicatio n ID: [id number] Du ration Value: 30 Brand Name: Xarelto S end Method: E-Prescri bed Subs Allowed: subs OK Specia l Instructi on: TK 1 T PO QD Medica tionGener icName: Xarelto Not Available Not Available Not Available Xarelto 20 mg tablet active Not Available Not Available No t Available Myrbetriq 25 mg tablet,ext ended release TAKE 1 TABLET BY MOUTH DAILY. DO NOT CRUSH OR CHEW active Not Available Not Available No t Available FreeStyle Toribio 14 Day Sensor kit active Not Available Not Available Not Available Paxlovid 150 mg-100 mg tablets in a dose pack (Moderate Renal Dose) TAKE 2 TABLETS BY MOUTH TWICE DAILY FOR 5 DAYS active Not Available Not Available No t Available Vitals Date Recorded Body height Body mass index (BMI) Body weight Provider Name and Address Organization Details Last Updated DateTime 08/01/2024 167.64 cm 32.6 kg/m2 92450.66 g Melina Estrelladinorah [place] - [facility] 08/01/2024 13:36:15 Social History None recorded. Functional Status None recorded. Mental Status None recorded. Family History Nothing Reported. Medical History No medical history recorded. Gynecological HistoryNo gynecological history recorded. 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 I will treat with steroid paste. I told her to call her PCP if her sugars become less well controlled . I will reassess in a few months. I did offer referral to [facility] but she was not interested . We will defer a biopsy for now. Health Concerns Section Related Observation LastModified by Organization Detai ls LastModified Time None Recorded Concern Status LastModified by Organization Details LastModified Time None Recorded Advance Directives Directive None Recorded Payers Insurance Date Sequence Insurance Name Policy Number Policy Diaz Covered Member ID Diaz Member ID Guarantor Name 08/01/[address] [place] [address] ([facility]) [id number] 01 Lisa Bartholomew [id number] Lisa Bartholomew Notes Date Note Type Note Provider Name and Address Organization Details Recorded Time 08/01/2024 text/html ROS as noted in the HPI In April in 2002 she had SCUBA INSTRUCTOR surgery and since then she has developed a sloughing condition in her oral mucosa. She has no chronic vaginal disease. She reports she has constant symptoms in her mouth. She also reports the tip of her tongue feels like it's burnt. She has never smoked. She has not tried any medications besides antibiotics which did not help. LUKAS CARCAMO MD [address] [place] [address], [phone], [place] - [facility] 08/01/2024 13:51:51 OBGyn Episode No OBEpisode recorded.
--- OUTSIDE RECORDS SUMMARY | 2025-05-24 15:06 | XMS_ITS | Data Portability ---
Author Organization [facility], [facility] Address [address] [place] [address] Care Team Providers Care Data Processing Specialist Name Role Phone JOVANI LANGFORD Primary Care Provider [phone] Assessment Encounter Date Assessment Date Assessment LastModified by Organization Details LastModified Time 03/21/2025 03/21/2025 I am seeing the patient today under the supervision of who was available but who did not see the patient. HPI: Patient presents today complaining of R hip pain. Patient's been dealing with hip pain for quite some time difficulty sitting standing. Difficulty walking. Gshv-fci-zbwebig medications have not helped. Now currently affecting all ADLs. Difficulty walking any distance. Pain is currently in the groin radiating into the buttocks and down the leg Past family, medical, social history and review of systems has been reviewed, updated and is located in the patient s chart. Examination: R hip exam. - warmth, effusion, erythema, ecchymosis, limitedROM, minimal pain with internal/external ROM, tenderness over the right SI joint no crepitus, no edema, 4/5 strength, nontender over greater trochanter, - Weston s , Obers, Malia sign, calf soft, neurovascularly intact. L hip exam. no warmth, effusion, erythema, ecchymosis, full ROM, nontender with internal/external ROM, no crepitus, no edema, 5/5 strength, nontender over greater trochanter, negative Weston s , Obers, Malia sign, calf soft, nontender, neurovascularly intact. 2 X-ray views independently reviewed at [facility] SI joint dysfunction right Impression: SI joint dysfunction Plan: Today we discuss treatment plans including medications, physical therapy, injections and surgical management. At this point patient was to proceed with [facility] Biolo tizanidine and Medrol Dosepak x. [email or web address] Not available 03/21/2025 14:24:25 Plan of Treatment Reminders Order Date Submit Date Provider Last Modified By Organization Details Last Modified Time Details Appointments None recorded. Lab None recorded. Referral pain management referral - PLEASE EAT FOR SIS DYSFUNCTION ; NOTES WILL BE FAXED 2024 025 [email or web address] [facility], [address] [facility], [place], [address], 15:12:33 Procedures None recorded. Surgeries None recorded. Imaging XR, hip + pelvis, unilateral, 2 or 3 view - rm 311 2v right hip 2024 025 [email or web address] [facility], [address] [facility], [facility] [address], [place], [address], 15:12:33 Medication Orders Medrol (Cristian) 4 mg tablets in a dose pack [address] [id number], [address] [place] [address], [id number], 15:12:33 tizanidine 4 mg tablet [address] [place] [address] [id number], [address] [place] [address], [phone], 15:12:33 Patient TargetsNo targets recorded. Patient InstructionsNo instructions recorded. Reason for Referral Pain Management Referral for Sacroiliac disorder PLEASE EAT FOR SIS DYSFUNCTION; NOTES WILL BE FAXED Referring Physician: Aba Yang, Orthopedic Surgery, Encounter Date: 03/21/2025 Results Created Date Observation Date Name Description Value Unit Range Abnormal Flag Note LastModifiedBy Organization Detail LastModifiedTime 03/12/2003/12/2025 radio logy overr ead* No observ ation record ed. [email or web address] [address] [place] [address], [address], 03/14/2025 09:41:52 03/21/20 25 03/21/2025 XR, hip + pelvi s, unila teral , 2 or 3 view [email or web address] ?Encry pted=s hAaTro YD8dLq bEUv6g %2BXZw aYqtaq 0bqfl% 2Fg9IQ a4ajBk vP9nXo QUaueC m3YtLR FvZlgJ JJ8mAn HZtai3 1f9826 AC0Klb nmEUKa hKiQtr MwF INTERFACE [facility] [address], [place], [address], 03/21/2025 14:03:12 03/21/20 25 03/21/2025 XR, hip + pelvi s, unila teral , 2 or 3 view http:/ [email or web address] ?Encry pted=s hAaTro YD8dLq bEUv6g %2BXZw aYqtaq 0bqfl% 2Fg9IQ a4ajBk vP9nXo QUaueC m3YtLR FvZlgJ JJ8mAn HZtai3 2o2273 AC0Klb nmEUKa hKiQtr MwF INTERFACE [facility] [address] [facility] [address], [place], [address], 03/21/2025 14:03:14 Result Notes Documentation Provider Name and Address Organization Details Recorded Time Xr, Hip + Pelvis, Unilateral, 2 Or 3 View : [email or web address] Encrypted=rwJhAhyQZ6qZbvF Uv6g%8YWUpiQaumy8uvzj%2Fg 9UDc7soCnqN3xZbBXtckLi0Lj TRBoPwuNYU4kOqBSkbt16o275 6DW0AztblYVFoeZvXhbIoM Not Available [facility] 03/21/2025 14:03: 12 Xr, Hip + Pelvis, Unilateral, 2 Or 3 View : [email or web address] Encrypted=izLfWypRB6vXumO Uv6g%4ITGypSjamm2orjd%2Fg 5HWp7niExsV9kXrPZvyzTk6Dz LVPjMxvSTK4yXpOFotz91x206 0YE8TbkaxTBOzxIxFjpJsT Not Available [facility] 03/21/2025 14:03: 15 Procedures Surgical History Date Name Laterality Status Provider Name and Address Organization Details Recorded Time 4 Trigger Finger Kenalog Injection completed Frank Beck MD [address] [place] [address] [address], [place], [address], [facility] 05/31/2024 17:40:19 2 Hand Surgery completed ARNOLDO BRYANT [facility] 05/26/2024 14:02:56 1 Hand Surgery completed ARNOLDO BRYANT [facility] 05/26/2024 14:02:56 Spine Surgery completed ARNOLDO BRYANT [facility] 05/26/2024 14:02:56 Knee Surgery completed ARNOLDO BRYANT [facility] 05/26/2024 14:02:56 Imaging Results None recorded. Procedure Notes None recorded. Medical Equipment None Reported. Allergies Allergen ID Allergen Name Allergen Category Reaction Reaction Severity Criticality Documentation Date Start Date Code Code System Note Provider Name and Address Organization Details Recorded Time 476350 morphine medicatio n other severe Not available 05/26/2024 7052 RxNorm ARNOLDO BRYANT [facility] 14:02:55 688855 codeine medicatio n abdominal pain severe Not available 05/26/2024 2670 RxNorm ARNOLDO BRYANT [facility] 14:02:55 655527 vancomyci n medicatio n rash severe Not available 05/26/2024 34981 RxNorm ARNOLDO BRYANT [facility] 14:02:55 86094 Product containin g penicilli n (product) medicatio n Not available Not available Not available 10/25/20232021 41688 8001 SNOMED Not Available [facility] 4 12:19:19 Medications Name Sig Start Date Stop Date Status Note LastModified by Organization Details LastModified Time nystatin 100,000 unit/mL oral suspension SHAKE LIQUID AND TAKE 5 ML BY MOUTH FOUR TIMES DAILY FOR 7 DAYS SWISH AND SWALLOW active Not Available Not Available No t Available torsemide 20 mg tablet Take 1 tablet every day by oral route. active Not Available Not Available No t Available Acetaminoph en Extra Strength 500 mg tablet 2 tablets as needed by oral route. active Not Available Not Available No t Available pravastatin 40 mg tablet active Not Available Not Available Not Available tizanidine 4 mg tablet TAKE 1 TABLET BY MOUTH EVERY 8 HOURS NEEDED active Not Available Not Available No t Available diltiazem CD 240 mg capsule,ext ended release 24 hr TAKE 1 CAPSULE BY MOUTH DAILY active Not Available Not Available No t Available Zyrtec 10 mg tablet 10 mg every day by oral route. active Not Available Not Available No t Available clobetasol 0.05 % topical gel APPLY TOPICALY THIN COAT TO DRY ORAL LESION. REMAIN NOTHING BY MOUTH FOR 20 MINUTES AFTER USE. REPEAT FOUR TIMES DAILY. STOP AFTER 2 WEEKS OF USE. active Not Available Not Available No t Available triamcinolo ne acetonide 0.1 % dental paste APPLY THIN LAYER TO ORAL LESIONS DAILY active Not Available Not Available No t Available omeprazole ER 20 mg capsule,ext ended release 1 capsule every day by oral route. active Not Available Not Available No t Available oseltamivir 75 mg capsule TAKE 1 CAPSULE BY MOUTH DAILY FOR 7 DAYS 03/21 completed Not Available Not Available Not Available fluconazole 50 mg tablet active Not Available Not Available Not Available docusate sodium 100 mg capsule TAKE 1 CAPSULE BY MOUTH TWICE DAILY NEEDED FOR CONSTIPAT ION active Not Available Not Available No t Available gabapentin 300 mg capsule 300 mg every day by oral route. active Not Available Not Available No t Available omeprazole 20 mg capsule,del ayed release active Not Available Not Available Not Available furosemide 20 mg tablet Take 20 mg every day by oral route. 03/21 completed Not Available Not Available Not Available methylpredn isolone 4 mg tablets in a dose pack FOLLOW PACKAGE DIRECTION S active Not Available Not Available No t Available Diltiazem CD 240 mg capsule,ext ended release 240 mg every day by oral route. active Not Available Not Available No t Available losartan 100 mg tablet 100 mg every day by oral route. active Not Available Not Available No t Available oxycodone 5 mg tablet TAKE 1 TABLET BY MOUTH EVERY 4 HOURS NEEDED FOR PAIN FOR 3 DAYS DIRECTED 03/21 completed Not Available Not Available Not Available Vitamin C 1,000 mg tablet 1 tablet 3 times a week by oral route. active Not Available Not Available No t Available Novofine Autocover 30 gauge x 1/3 needle active Not Available Not Available Not Available Cartia XT Cartia XT 240MG Capsule Extended Release 24 Hour 09/10 completed Statu s: 'Disc ontin ued'; Not Available Not Available Not Available Wheeler 3 Fish Oil active Not Available Not Available Not Available Multivitami n 50 Plus active Not Available Not Available No t Available Calcium 600 + D(3) 600 mg-10 mcg (400 unit) tablet 2 tablets every day by oral route. active Not Available Not Available No t Available Lantus Solostar U-100 Insulin 100 unit/mL (3 mL) subcutaneou s pen 46 units every day by sub-q route. active Not Available Not Available No t Available Rx Balance Statin 30 mg-50 mg-50 mcg-50 mg capsule 1 capsule every day by oral route. active Not Available Not Available No t Available Humalog KwikPen (U-100) Insulin 100 unit/mL subcutaneou s 1 sliding scale dose 3 times a day by sub-q route. active Not Available Not Available No t Available oxycodone HCl-oxycodo ne-ASA DO NOT DRIVE WHILE ON THIS MEDICATIO N 05/22 completed Statu s: 'Curr ent'; Not Available Not Available Not Available Xarelto 20 mg tablet 20 mg every day by oral route. active Not Available Not Available No t Available Myrbetriq 25 mg tablet,exte nded release TAKE 1 TABLET BY MOUTH DAILY. DO NOT CRUSH OR CHEW active Not Available Not Available No t Available FreeStyle Toribio 14 Day Sensor kit active Not Available Not Available Not Available Paxlovid 150 mg-100 mg tablets in a dose pack (Moderate Renal Dose) TAKE 2 TABLETS BY MOUTH TWICE DAILY FOR 5 DAYS 03/21 completed Not Available Not Available Not Available PreserVisio n AREDS 2 CO Q-10 250 mg-90 mg-40 mg-1 mg-5 mg capsule Take by oral route. active Not Available Not Available No t Available Vitals Date Recorded Body height Body mass index (BMI) Body weight Provider Name and Address Organization Details Last Updated DateTime 03/21/2025 167.64 cm 32.8 kg/m2 34333.25 g Darek Huerta [facility] [address] 03/21/2025 13:53:37 Date Recorded Body height Body mass index (BMI) Body weight Provider Name and Address Organization Details Last Updated DateTime 05/26/2024 167.64 cm 32.8 kg/m2 83790.25 g ARNOLDO BRYANT [facility] 05/26/2024 14:31:43 Social History Question Answer Notes LastModified by Organizat ion Details LastModified Time Tobacco Smoking Status Never Smoker ARNOLDO BRYANT [facility] 05/26/2024 14:02:56 What Is Your Relationship Status? [email or web address] Information not available 05/26/2024 Sex: Unknown Functional Status Question Answer Note LastModified by Organizat ion Details LastModified Time How many times per week do you consume alcohol? Less than 1 time per week [email or web address] Information not available 05/26/2024 Do you use any illicit or recreational drugs? No [email or web address] Information not available 05/26/2024 Do you or have you ever used any other forms of tobacco or nicotine? No [email or web address] Information not available 05/26/2024 Do you or have you ever used e-cigarettes or vape? Never used electronic cigarettes [email or web address] Information not available 05/26/2024 Mental Status None recorded. Family History Nothing Reported. Medical History Condition Response Diabetes Y Kidney/Bladder Problems Y Arthritis Y Sleep Apnea Y Acid Reflux (GERD) Y Heart Disease Y Thyroid Problems Y Hypertension Y Gynecological HistoryNo gynecological history recorded. Obstetrics History GPAL:G 0 P 0 0 0 0 Past Encounters Encounter ID Performer Location Encounter Start Date Encounter Closed Date Diagnosis/Indication Diagnosis SNOMED-CT Code Diagnosis ICD10 Code Diagnosis IMO Codes Diagnosis Note [id number] MD Jt Hull [address] [place], [place] [address] 05/26/2024 13:49:27 06/13/2024 12:58:28 Trigger finger of left hand [id number] 7201935 M65.30 [id number] ANTOLIN Forrest [address] [place] [address] 03/21/2025 13:38:05 04/03/2025 08:39:02 Osteoarthritis of right hip joint 9107695990 72144 M16.11 1655427 Sacroiliac disorder 2027 91993 M53.3 401670 Health Concerns Section Related Observation LastModified by Organization Detai ls LastModified Time None Recorded Concern Status LastModified by Organization Details LastModified Time None Recorded Advance Directives Directive None Recorded Payers Insurance Date Sequence Insurance Name Policy Number Policy Diaz Covered Member ID Diaz Member ID Guarantor Name 04/03/2025 1 [employer] - MEDICARE ADVANTAGE PLAN (MEDICARE REPLACEMENT HMO) [id number] Lisa Bartholomew [id number] Lisa Bartholomew Notes Date Note Type Note Provider Name and Address Organization Details Recorded Time 05/26/2024 text/html ROS as noted in the HPI Diagnosis: Flexor tenosynovitis left middle [id number] female presents with pain and stiffness of her left middle finger. This developed without history of trauma or inciting event. She rates the pain as a 6/10 in severity. She describes no numbness or tingling.Past family, medical, social history and review of systems has been reviewed, updated and is located in the patient s chart. Her past medical history is significant for diabetes mellitus.Examination : Healthy appearing patient in no apparent distress. Alert and oriented. She has tenderness over the A1 candida of the left middle finger and crepitus in this region with digital motion. She has limited flexion of her left middle finger but otherwise symmetrical range of motion of her wrists and digits. Provocative testing of wrists and digits reveal no instability. No atrophy in either upper extremity. Brisk capillary refill in all digitsPlan: The patient and I discussed her situation at length. I described the nature flexor tenosynovitis and I offered her corticosteroid injection. Given her history of diabetes mellitus we discussed the concern of transient increases in her serum glucose levels. She has promised to be vigilant. She tolerated her injection well. She will follow up at her discretion. Frank Beck MD [address] [place] [address] [address], [place], [address], [facility] 05/31/2024 17:40:46 OBGyn Episode No OBEpisode recorded.
[2025-05-24 18:08] LABS: Anion Gap 14 (12-20); Blood Urea Nitrogen 22 mg/dL (9-16); Calcium 9.6 mg/dL (8.4-10.2); Carbon Dioxide 29 mmol/L (22-29); Chloride 103 mmol/L (96-108); Estimated Glomerular Filt Rate 45; Potassium 4.1 mmol/L (3.3-5.1); Sodium 142 mmol/L (135-145)
== END 2025-05-24 13:35 | disposition home or self-care (01) ==
LOC: HO.HKASLDS 13:34
PROVIDERS: Internal Medicine Cardiovascular Disease; PCP Internal Medicine; Visit Provider Internal Medicine Hypertension Specialist
DX: R60.9 Edema, unspecified (principal)
CPT/HCPCS: 36415; 80048